=== PATIENT | female | born 1940 | race Caucasian/White ===

== ENCOUNTER 2020-07-05 11:24 | Outpatient (CLI) | payer MEDICARE, SELFPAY ==
--- NOTE | ~2020-07-05 | XR_ITS ---
XR foot RT min 3V DATE: 07/05/2020 11:42 INDICATION: Bilateral foot pain TECHNIQUE: 3 views COMPARISON: None FINDINGS: There is very prominent hallux valgus and bunion deformity. No fracture or dislocation, periosteal reaction or bone destruction is detected. IMPRESSION: Prominent hallux valgus and bunion deformity Reviewed, dictated and finalized at location A.
--- NOTE | ~2020-07-05 | XR_ITS ---
XR foot LT min 3V DATE: 07/05/2020 11:42 INDICATION: Left foot pain TECHNIQUE: 3 views COMPARISON: None FINDINGS: Prominent hallux valgus and bunion deformity. 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 Plantar calcaneal enthesopathy. 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
== END 2020-07-05 11:25 | disposition home or self-care (01) ==
LOC: CHSIMG 11:26
PROVIDERS: PCP Family Medicine; Visit Provider Podiatrist
DX: M79.672 Pain in left foot (principal); M79.671 Pain in right foot; M19.071 Primary osteoarthritis, right ankle and foot; M19.072 Primary osteoarthritis, left ankle and foot
CPT/HCPCS: 73630

== ENCOUNTER 2022-02-08 07:47 | Outpatient (RCR) | payer MEDICARE, SELFPAY ==
--- NOTE | 2022-02-08 08:14 | PTOPEVAL1 ---
Assessment and note entered by JT File, PT Evaluation Information Assessment Status Evaluation Diagnosis imbalance Onset 02/05/22 Subjective Information patient reports she is coming to therapy for evaluation of which walker would be most safe for her to use. she reports she does not want to seek any continued services for her balance at this time. patient reports she is seeking consultation with a ENT/specialist for an inner ear disorder, and may be getting surgery soon. she reports she has not had any falls. Reported Pain Level Pain Score 0: Self Report Additional Pain Score Comments worse on the R most of the time. Assessment PT Clinical Summary mrs. shearer presents to skilled PT for evaluation of most appropriate walker for ambulation and safety. as of this date, she presents with a moderate fall risk per the tinetti balance assessment, and a current innner ear disorder affecting her balanace. due to patients reports of poor endurance with standing and ambulation, especially in the mornings, and due to her balance deficits, it is advised that patient acquire a rollator walker for safety with standing and ambulation. Plan of Care Interventions Patient/Caregiver Educati PT Services Indicated Yes Treatment Frequency and DC patient after evaluation. patient does not want Duration to continue skilled PT at this time. These treatments will address the objective and functional deficits as defined above. The patient will be advanced safely and appropriately in order for the patient to progress towards his/her prior level of function. Additional exercises will be introduced and as well as a comprehensive home exercise program upon discharge, if needed, ?to ensure carryover of functional gains achieved in the clinic. This treatment plan has been reviewed and agreement upon by the patient.
== END 2022-02-08 09:45 | disposition home or self-care (01) ==
LOC: CHSPT 07:47
PROVIDERS: PCP Family Medicine; Visit Provider Family Medicine
DX: R26.89 Other abnormalities of gait and mobility (principal)
CPT/HCPCS: 97161

== ENCOUNTER 2023-04-25 07:10 | Outpatient (NON) | payer MEDICARE, SELFPAY ==
[2023-04-25 08:10] LABS: Basophils Absolute Auto 0.06 K/mm3 (0.00-0.10); Eosinophils Absolute Auto 0.25 K/mm3 (0.02-0.50); Eosinophils Percent Auto 4.2 % (1.0-6.0); Hematocrit 40.5 % (35.0-42.0); Hemoglobin 12.7 g/dL (11.7-13.8); Immature Granulocyte Absolute 0.01 K/mm3 (0.00-0.00); Immature Granulocyte Percent A 0.2 % (0.0-0.0); Lymphocytes Absolute Auto 1.85 K/mm3 (1.10-4.50); Mean Corpuscular HGB Conc 31.4 g/dL (32.0-36.0); Mean Corpuscular Volume 92.5 fL (78.0-102.0); Mean Platelet Volume 9.2 fl (9.2-11.8); Monocytes Absolute Auto 0.63 K/mm3 (0.10-0.90); Monocytes Percent Auto 10.6 % (2.0-11.0); Neutrophils Absolute Auto 3.2 K/mm3 (1.7-7.2); Platelet Count Result 278 K/mm3 (150-420); Red Blood Count 4.38 M/mm3 (4.20-5.40); Red Cell Distribution Width 13.2 % (11.6-14.4)
[2023-04-25 08:31] LABS: Alanine Aminotransferase 23 U/L (14-59); Albumin Level 3.9 g/dL (3.4-5.0); Alkaline Phosphatase 103 U/L (46-116); Anion Gap 10 mmol/L (8-16); Aspartate Amino Transferase 14 U/L (15-37); Bilirubin,Total 0.5 mg/dL (0.00-1.00); Blood Urea Nitrogen 12 mg/dL (7-18); Calcium 9.5 mg/dL (8.5-10.1); Carbon Dioxide 30 mmol/L (21-32); Chloride 97 mmol/L (98-108); Estimated Glomerular Filt Rate > 60; Glucose 90 mg/dL (70-99); Osmolality Calculated 283 mOsm/kg (285-295); Potassium 4.5 mmol/L (3.5-5.1); Sodium 137 mmol/L (136-145); Total Protein 6.9 g/dL (6.4-8.2)
[2023-04-25 08:41] LABS: Hemoglobin A1C 5.3 % (<5.7)
== END 2023-04-25 07:11 | disposition home or self-care (01) ==
LOC: CHSLAB 07:11
PROVIDERS: Visit Provider Family Medicine
DX: I67.9 Cerebrovascular disease, unspecified (principal); I65.23 Occlusion and stenosis of bilateral carotid arteries; M81.0 Age-related osteoporosis without current pathological fracture; I10 Essential (primary) hypertension; R79.9 Abnormal finding of blood chemistry, unspecified
CPT/HCPCS: 36415; 80053; 83036; 85025

== ENCOUNTER 2023-05-16 07:00 | Outpatient (NON) | payer MEDICARE, SELFPAY ==
[2023-05-19 02:32] LABS: Vitamin D 25 Hydroxy 63 ng/mL (30-100)
== END 2023-05-16 07:01 | disposition home or self-care (01) ==
LOC: CHSLAB 07:02
PROVIDERS: Visit Provider Family Medicine
DX: E55.9 Vitamin D deficiency, unspecified (principal); M81.0 Age-related osteoporosis without current pathological fracture
CPT/HCPCS: 36415; 82306

== ENCOUNTER 2023-05-28 07:47 | Outpatient (NON) | payer MEDICARE, SELFPAY ==
[2023-05-28 08:41] LABS: Sodium 138 mmol/L (136-145)
== END 2023-05-28 07:48 | disposition home or self-care (01) ==
LOC: CHSLAB 07:49
PROVIDERS: Visit Provider Family Medicine
DX: I10 Essential (primary) hypertension (principal); R41.0 Disorientation, unspecified; R42 Dizziness and giddiness
CPT/HCPCS: 36415; 84295

== ENCOUNTER 2023-10-29 15:10 | Outpatient (NON) | payer MEDICARE, SELFPAY | END 2023-10-29 15:11 | disposition home or self-care (01) | LOC: CHSLAB 15:12 | PROVIDERS: Visit Provider Family Medicine | DX: R35.0 Frequency of micturition (principal) | CPT/HCPCS: 87086 ==

== ENCOUNTER 2023-10-31 11:42 | Outpatient (NON) | payer MEDICARE, SELFPAY ==
[2023-10-31 12:32] LABS: Appearance Urine Clear (Clear); Color Urine Yellow (Yellow); Glucose Urine UA Negative (Negative); Ketones Urine Negative (Negative); Protein Urine Negative (Negative); Specific Grav Ur 1.005 (1.010-1.020)
[2023-10-31 12:33] LABS: Add Urine Microscopic? YES; Bacteria Urine Rare /hpf; Bilirubin Urine Negative (Negative); Blood Urine Negative (Negative); Leukocyte Esterase Ur 2+ LEU/UL (Negative); Nitrate Urine Negative (Negative); RBC Urine None seen /hpf (0-2); Squamous Epithelial Cell Urine Rare /hpf (Few); Urobilinogen Urine Normal mg/dL (0.2-1.0)
== END 2023-10-31 11:43 | disposition home or self-care (01) ==
LOC: CHSLAB 11:46
PROVIDERS: Visit Provider Family Medicine
DX: R35.0 Frequency of micturition (principal); R82.90 Unspecified abnormal findings in urine
CPT/HCPCS: 81001; 87077; 87086; 87088; 87186

== ENCOUNTER 2023-12-10 08:47 | Outpatient (NON) | payer MEDICARE, SELFPAY ==
[2023-12-10 09:02] LABS: Add Urine Microscopic? YES; Appearance Urine Cloudy (Clear); Bilirubin Urine Negative (Negative); Blood Urine 3+ (Negative); Color Urine Yellow (Yellow); Glucose Urine UA Negative (Negative); Ketones Urine Negative (Negative); Leukocyte Esterase Ur 3+ (Negative); Nitrate Urine Negative (Negative); Protein Urine Trace (Negative)
[2023-12-10 09:07] LABS: Bacteria Urine 3+ /hpf; RBC Urine 21-50 /hpf (0-2); Squamous Epithelial Cell Urine Rare /hpf (Few); WBC Urine 51-75 /hpf (0-3)
== END 2023-12-10 08:48 | disposition home or self-care (01) ==
LOC: CHSLAB 08:48
PROVIDERS: Visit Provider Family Medicine
DX: R30.0 Dysuria (principal); R39.15 Urgency of urination
CPT/HCPCS: 81001; 87077; 87086; 87088; 87186

== ENCOUNTER 2023-12-25 14:56 | Outpatient (CLI) | payer MEDICARE, SELFPAY ==
--- NOTE | ~2023-12-25 | XR_ITS ---
XR abdomen/kub 1V Ordering provider: Nirmal Ann, History: . ABDOMEN PAIN . Comparison: None. FINDINGS: BOWEL: Fecal material in the colon. Nonobstructive bowel gas pattern. ORGANOMEGALY: None. SIGNIFICANT PATHOLOGIC CALCIFICATIONS: None. OTHER: No free air is seen under the diaphragm. Degenerative changes of the spine. IMPRESSION: NO ACUTE ABDOMINAL FINDINGS. Constipation. Reviewed, dictated and finalized at location A.
== END 2023-12-25 14:57 | disposition home or self-care (01) ==
PROVIDERS: PCP Family Medicine; Visit Provider Family Medicine
DX: R10.9 Unspecified abdominal pain (principal); K59.00 Constipation, unspecified
CPT/HCPCS: 74018

== ENCOUNTER 2024-02-12 15:50 | Outpatient (CLI) | payer MEDICARE, SELFPAY ==
--- NOTE | ~2024-02-12 | XR_ITS ---
EXAMINATION: XR abdomen obstructive series DATE: 02/12/2024 16:10 INDICATION: Abdominal pain. TECHNIQUE: Upright and supine views of the abdomen on 3 radiographs were obtained. COMPARISON: Abdomen radiographs 12/25/2023 FINDINGS: There are no dilated loops of bowel. There is a moderate volume of stool in the colon. No f ree intraperitoneal gas. Calcifications in the pelvis are likely phleboliths. IMPRESSION: 1. Nonobstructive bowel gas pattern. Reviewed, dictated and finalized at location A. GER STAR
== END 2024-02-12 15:51 | disposition home or self-care (01) ==
PROVIDERS: PCP Family Medicine; Visit Provider Family Medicine
DX: R10.9 Unspecified abdominal pain (principal)
CPT/HCPCS: 74019

== ENCOUNTER 2024-02-14 10:29 | Outpatient (NON) | payer MEDICARE, SELFPAY ==
[2024-02-14 10:51] LABS: Add Urine Microscopic? NO; Appearance Urine Clear (Clear); Bilirubin Urine Negative (Negative); Blood Urine Negative (Negative); Color Urine Light Yellow (Yellow); Glucose Urine UA Negative (Negative); Ketones Urine Negative (Negative); Leukocyte Esterase Ur Negative LEU/UL (Negative); Nitrate Urine Negative (Negative); Protein Urine Negative (Negative); Specific Grav Ur 1.015 (1.010-1.020)
== END 2024-02-14 10:30 | disposition home or self-care (01) ==
LOC: CHSLAB 10:39
PROVIDERS: Visit Provider Family Medicine
DX: R35.0 Frequency of micturition (principal)
CPT/HCPCS: 81003; 87086

== ENCOUNTER 2024-04-16 11:37 | Outpatient (NON) | payer MEDICARE, SELFPAY ==
--- OUTSIDE RECORDS SUMMARY | 2024-04-16 11:54 | XMS_ITS | Clinical Summary ---
Author Organization [facility] Address [address] [place] [address] Care Team Providers Care Dolly Driver Name Role Phone Gladys Stoner MD Unavailable [phone] Chun Orantes MD Unavailable [facility] Nirmal Amaro MD Primary Care Provider Allergies Active Allergy Reactions Criticality Noted Date Comments Corey Inhibitors Cough 01/30/2016 Atorvastatin Myalgias 01/30/2016 Brinzolamide Other (see comment) Low 07/20/2011 redness Cerivastatin Unknown 01/30/2016 Codeine Itching 12/31/2022 Cyclosporine Other (see comment) Low 02/04/2015 The patient experienced headache that resolved after discontinuing Restasis. Therefore we will stop this medication but could resume dry eye symptoms recur as it is unlikely that Restasis was causing headache, Sandeep Reyes MD, 02/04/2015, 1:14 PM, , The patient experienced headache that resolved after discontinuing Restasis. Therefore we will stop this medication but could resume dry eye symptoms recur as it is unlikely that Restasis was causing headache, Sandeep Reyes MD, 02/04/2015, 1:14 PM, Erythromycin Unknown 01/30/2016 Erythromycin Base Itching 12/31/2022 Ezetimibe Myalgias 01/30/2016 Fenofibrate Other (see comment) 12/31/2022 Fluvastatin Myalgias 01/30/2016 Iodine Shortness of Breath High 01/30/2016 Iodine Shortness of Breath High 12/31/2022 Nortriptyline Itching 08/07/2022 Penicillins Myalgias 01/30/2016 Pravastatin Other (see comment) 12/31/2022 Shellfish Allergy Anaphylaxis High 12/31/2022 Shellfish-Derived Products Unknown 02/01/2016 Simvastatin Other (see comment) 12/31/2022 Statins Myalgias 01/30/2016 Sulfa Antibiotics Unknown 07/20/2011 Tetracycline Itching 12/31/2022 Tetracyclines & Related Itching 01/30/2016 Timolol Other (see comment) Low 09/23/2013 Pt called and reported dizzyness; resoled after stopping timolol, Sandeep Reyes MD, 09/23/2013, 2:08 PM, , Pt called and reported dizzyness; resoled after stopping timolol, Sandeep Reyes MD, 09/23/2013, 2:08 PM, , Pt called and reported dizzyness; resoled after stopping timolol, Sandeep Reyes MD, 09/23/2013, 2:08 PM, Yellow Dye Unknown 07/20/2011 Medications aspirin 325 MG tablet Take 1 tablet (325 mg total) by mouth daily. 09/14/2014 Active rosuvastatin (CRESTOR) 5 MG tablet Take 0.5 tablets (2.5 mg total) by mouth daily. 09/14/2014 Active albuterol sulfate HFA (PROAIR HFA) 108 (90 Base) MCG/ACT inhaler ProAir HFA (albuterol sulfate) HFA aerosol inhaler 90 mcg/actuatio n; take 2 puff by mouth as directed; 0; 14-Sep-2014; Active 09/14/2014 Active Cholecalciferol (VITAMIN D) 50 MCG (2000 UT) Cap Take 1 tablet by mouth daily. 09/14/2014 Active vitamin B-12 (CYANOCOBALAMIN ) 1000 mcg tablet Take 1 tablet (1,000 mcg total) by mouth daily. Active carboxymethylce llulose PF (REFRESH PLUS) 0.5 % ophthalmic solution Place 1 drop into both eyes as needed. Active Olopatadine HCl (PATADAY OP) Apply 1 drop to eye daily as needed. Active losartan (COZAAR) 100 MG tablet Take 1 tablet (100 mg total) by mouth daily. 09/25/2021 Active tobramycin-dexa methasone (TOBRADEX) ophthalmic solution 11/29/2021 Active ALPRAZolam (XANAX) 0.5 MG tabletIndicatio ns:Dizziness Take 1 tablet (0.5 mg total) by mouth 4 (four) times daily. 120 tablet 01/29/2023 Active propranolol (INDERAL) 10 MG tablet Take 1 tablet (10 mg total) by mouth 2 (two) times daily as needed (anxiety). 90 tablet 01/29/2023 Active Active Problems Problem Noted Date Diagnosed Date Other spondylosis with radiculopathy, thoracic r egion 07/21/2021 Palpitations 07/14/2019 Osteoporosis 10/16/2018 Syringomyelia ([facility]) 06/12/2018 Carotid stenosis, asymptomatic, bilateral 2017 Essential (primary) hypertension 04/17/2017 Hyperlipidemia, mixed 04/17/2017 Dizziness Resolved Problems Problem Noted Date Diagnosed Date Resolved Date Confusion 01/27/2023 01/29/2023 Family History Medical History Relation Comments Stent Cardiac Brother Heart Attack Father Prostate Cancer Father HX PPM Sister Relation Status Comments Brother Alive Father (Age 70) Maternal Grandfather (Age 82) Maternal Grandmother (Age 86) Mother (Age 81) Paternal Grandfather (Age 75) Paternal Grandmother (Age 75) Sister Alive Social History Tobacco Use Types Packs/Day Years Used Date Smoking Tobacco: Every Day Smokeless Tobacco: Never Tobacco Cessation:Ready to Q uit: No; Counseling Given: Yes Alcohol Use Standard Drinks/Week Comments Never 0 (1 standard drink = 0.6 oz pur e alcohol) [facility] Utilities Answer Date Recorded In the past 12 months has [facility] [employer], oil, or water [employer] threatened to shut off services in your home? No 01/27/2023 Humiliation, Afraid, Rape, and Kick questionnair e Answer Date Recorded Within the last year, have y ou been afraid of your partner or ex-partner? No 01/27/2023 Within the last year, have y ou been humiliated or emotionally abused in other ways by your partner or ex-partner? No Within the last year, have y ou been kicked, hit, slapped, or otherwise physically hurt by your partner or ex-partner? No 01/27/2023 Within the last year, have y ou been raped or forced to have any kind of sexual activity by your partner or ex-partner? No 01/27/2023 Overall Financial Resource Strain (CARDIA) Answe r Date Recorded How hard is it for you to pa y for the very basics like food, housing, medical care, and heating? Not hard at all 01/27/2023 Hunger Vital Sign Answer Date Recorded Within the past 12 months, y ou worried that your food would run out before you got the money to buy more. Never true 01/28/20 23 Within the past 12 months, t he food you bought just didn't last and you didn't have money to get more. Never true 01/27/2023 PRAPARE - Transportation Answer Date Re corded In the past 12 months, has l ack of transportation kept you from medical appointments or from getting medications? No 04/2022 In the past 12 months, has l ack of transportation kept you from meetings, work, or from getting things needed for daily living? No 01/27/2023 Housing Stability Vital Sign Answer Kenny e Recorded In the last 12 months, was t here a time when you were not able to pay the mortgage or rent on time? No 01/27/2023 In the last 12 months, how many places have you lived? 1 01/27/2023 In the last 12 months, was t here a time when you did not have a steady place to sleep or slept in a [facility] (including now)? 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 Not on file Not on file Not on fi le Last Filed Vital Signs Vital Sign Reading Time Taken Comments Blood Pressure 139/45 01/29/2023 1:48 PM SHIPPING P[employer]ER Pulse 73 01/29/2023 1:48 PM SHIPPING P[employer]ER Temperature 36.1 C (97 F) 01/29/2023 1:48 PM SHIPPING PACKER Respiratory Rate 18 01/29/2023 1:48 PM SHIPPING PACKER Oxygen Saturation 97% 01/29/2023 1:48 PM SHIPPING PACKER Inhaled Oxygen Concentration - - Weight 52.2 kg (115 lb) 01/27/2023 2:35 PM SHIPPING PACKER Height 157.5 cm (5' 2 ) 01/27/2023 2:35 PM SHIPPING PACKER Body Mass Index 21.03 01/27/2023 2:35 PM SHIPPING PACKER Plan of Treatment Health Maintenance Due Date Last Done Comments DTaP, Tdap and Td Vaccines ( 1 - Tdap) 1959 Annual Medicare Wellness Visit 08/19/2007 Pneumococcal Vaccine: 65+ Years (2 of 2 - PPSV23 or PCV20) 05/21/2012 03/26/2012 RSV Immunization or 60+ Years (1 - 1-dose 75+ series) 2017 COVID-19 Vaccine ( - 2023-2 5 season) 2023 Influenza Adult (#1) 2023 Zoster Vaccines Completed 11/02/2018, 08/17/2018 Dexa Scan (General) Completed 06/25/2022 Meningococcal B Vaccine Aged Out No l onger eligible based on patient's age to complete this topic Meningococcal Vaccine Aged Out No lucy jose eligible based on patient's age to complete this topic RSV Immunizations Under 20 Months Aged Out No longer eligible b ased on patient's age to complete this topic Procedures Procedure Name Priority Date/Time Associated Diagnosis Comments BONE DENSITY/DEXA Routine 06/25/2022 2:4 6 PM CDT Postmenopausal from Last 3 Months or Most Recently Relevant to Health Maintenance Results * BONE DENSITY/DEXA (06/25/2022 2:46 PM CDT) Anatomical Region Laterality Modality Bone Bone Density 06/26/2022 12:1 3 PM CDT Impressions 06/26/2022 12:16 PM CDT Impression: Normal bone mineral density in the lumbar spine. Osteopenia of the hips. Increased fracture risk. Follow-up DEXA examination is recommended at one year. Treatment is advised. Ordered By: NIRMAL HDZ Interpreted By: Carlos Josue Jr, MD, 06/26/2022 12:13 PM Narrative 06/26/2022 12:16 PM CDT Date: 06/25/2022. Examination: DEXA Bone densitometry. Comparison: No comparisons.. Clinical history: Osteoporosis screening. Technique: DEXA bone minimal density evaluation was performed in the AP projection over the lumbar spine and over both hips in the AP projection utilizing standard imaging techniques. Assessment: The BMD measured at the AP spine L1-L4 is 0.999 g/cm2 with a T-score of -0.4 and a Z-Score of 2.2. Normal bone mineral density. The BMD measured at the femur total left is 0.815 g/cm2 with a T-score of -1.0 and a Z-Score of 1.0. Osteopenia. The 10 year fracture risk for major osteoporotic fracture is 11%. The 10 year fracture risk for left hip fracture is 3.6%. The BMD measured at the femur total right is 0.702 g/cm2 with a T-score of -2.0 and aZ-Score of 0.1. Osteopenia. The 10 year fracture risk for major osteoporotic fracture is 13%. The 10 year fracture risk for right hip fracture is 4.5%. Recommendations: All patients should ensure an adequate intake of dietary calcium and vitamin D. The NOF recommend adults under the age of 50 need 1000 mg of calcium and 400-800 IU of vitamin D daily. Effective therapy for the prevention and treatment of osteoporosis include biphosphonates. Follow-up: People with diagnosed cases of osteoporosis or at high risk for fracture should have regular bone mineral density test. For patients eligible for Medicare, routine testing is allowed once every 2 years. Testing frequency can be increased to one year for patients who have rapidly progressing disease, those who are receiving or discontinuing medical therapy to restore bone mass, or have additional risk factors. Based on these results, a followup exam is recommended in June 2023. Procedure Note Carlos Josue MD - 06/26/2022 Date: 06/25/2022. Examination: DEXA Bone densitometry. Comparison: No comparisons.. Clinical history: Osteoporosis screening. Technique: DEXA bone minimal density evaluation was performed in the APprojection over the lumbar spine and over both hips in the AP projectionutilizing standard imaging techniques. Assessment: The BMD measured at the AP spine L1-L4 is 0.999 g/cm2 with a T-score of-0.4 and a Z-Score of 2.2. Normal bone mineral density. The BMD measured at the femur total left is 0.815 g/cm2 with a T-score of-1.0 and a Z-Score of 1.0. Osteopenia. The 10 year fracture risk formajor osteoporotic fracture is 11%. The 10 year fracture risk for left hipfracture is 3.6%. The BMD measured at the femur total right is 0.702 g/cm2 with a T-score of-2.0 and aZ-Score of 0.1. Osteopenia. The 10 year fracture risk formajor osteoporotic fracture is 13%. The 10 year fracture risk for righthip fracture is 4.5%. Recommendations: All patients should ensure an adequate intake of dietary calcium andvitamin D. The NOF recommend adults under the age of 50 need 1000 mg ofcalcium and 400-800 IU of vitamin D daily. Effective therapy for theprevention and treatment of osteoporosis include biphosphonates. Follow-up: People with diagnosed cases of osteoporosis or at high risk for fractureshould have regular bone mineral density test. For patients eligible forMedicare, routine testing is allowed once every 2 years. Testing frequencycan be increased to one year for patients who have rapidly progressingdisease, those who are receiving or discontinuing medical therapy torestore bone mass, or have additional risk factors. Based on these results, a followup exam is recommended in June 2023. Impression: Normal bone mineral density in the lumbar spine. Osteopenia of the hips.Increased fracture risk. Follow-up DEXA examination is recommended at oneyear. Treatment is advised. 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
--- OUTSIDE RECORDS SUMMARY | 2024-04-16 11:54 | XMS_ITS | Referral Summary ---
Author Organization [facility] Address [address] [place] [address] Care Team Providers Care Protection Mgr Name Role Phone Inder Redman MD Primary Care Provider [phone] Source Comments [facility],non-owned Affiliates and Associated Physician Practices is amultiple site organization consisting of ambulatory clinics and hospital sitesin [place], [place], [place] and [place]. This disclosure is being madepursuant to the Care Everywhere program and may not contain all information available regarding this patient. Last updated 17.[facility] Allergies Active Allergy Reactions Criticality Noted Date Comments Brinzolamide Other Low 07/20/2011 redness Cyclosporine Other Low 02/04/2015 The patient experienced headache that [...] headache, Sandeep Reyes MD, 02/04/2015, 1:14 PM, Hmg-Coa-R Inhibitors Other Low 06/02/2013 Muscle aches. Pt does okay on Crestor., Muscle aches. Pt does okay on Crestor., Muscle aches. Pt does okay on Crestor. 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 015 Age-related cataract 12/09/2014 Social History Tobacco Use Types Packs/Day Years Used Date Smoking Tobacco: Former Cigarettes Alcohol Use Standard Drinks/Week Comments No 0 (1 standard drink = 0.6 oz pur e alcohol) Sex and Gender Information Value Date Recorded Sex Assigned at Not on file Gender Identity Not on file Sexual Orientation Not on file Last Filed Vital Signs Vital Sign Reading Time Taken Comments Blood Pressure 133/82 06/20/2015 2:55 PM CDT Pulse 67 06/20/2015 2:55 PM CDT Temperature 36.6 C (97.8 F) 06/20/2015 3:00 PM CDT Respiratory Rate 16 06/20/2015 2:55 PM CDT Oxygen Saturation 97% 06/20/2015 2:55 PM CDT Inhaled Oxygen Concentration - - Weight 76.7 kg (169 lb) 06/20/2015 11:58 AM CDT Height 157.5 cm (5' 2 ) 06/20/2015 11:58 AM CDT Body Mass Index 30.91 06/20/2015 11:58 AM CDT Plan of Treatment Not on file Care Teams Protection Mgr Relationship Specialty Start Date End Date Inder Redman MD [address] [place] [phone] PCP - General 12/05/07
--- OUTSIDE RECORDS SUMMARY | 2024-04-16 11:54 | XMS_ITS | Encounter Summary ---
Author Organization [facility] Address [address] [place] [address] Care Team Providers Care Filler Leaf Cutter Long Name Role Phone Gladys Stoner MD Unavailable [phone] Chun Orantes MD Un[facility] Nirmal Amaro MD Primary Care Provider [phone] Encounter Details Date Type Department Care Team (Late st Contact Info) Description 07/21/2021 [employer] Message Enc [facility] [address], [facility] [address] [place] [address] Se Vargas III, MD [address] [place] [address] Visit Follow Up Social History Tobacco Use Types Packs/Day Years Used Date Smoking Tobacco: Every Day Smokeless Tobacco: Never Alcohol Use Standard Drinks/Week Comments No 0 (1 standard drink = 0.6 oz pur e alcohol) Comments Unknown Sex and Gender Information Value Date Recorded Sex Assigned at Not on file Legal Sex Female 9:27 PM CDT Gender Identity Not on file Sexual Orientation Not on file 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 No / Unsure 07/20/2021 12:35 PM CDT documented as of this encounter Plan of Treatment Not on file documented as of this encounter Visit Diagnoses Not on filedocumented in this encounter Care Teams Filler Leaf Cutter Long Relationship Specialty Start Date End Date Nirmal Ann MD [address] [place] [phone] PCP - General FAMILY PRACTICE 07/19/20 Gladys Stoner MD [address] [place] [phone] [place] Business Database Analyst CARDIOVASCULAR DISEASE 06/24/18 Chun Orantes MD [address] [place] [address] Business Database Analyst CARDIOVASCULAR DISEASE 12/03/18 documented as of this encounter
--- OUTSIDE RECORDS SUMMARY | 2024-04-16 11:55 | XMS_ITS | Encounter Summary ---
Author Organization [facility] Address [facility] [place] [address] Care Team Providers Care Animal Impersonator Name Role Phone Inder Redman MD Primary Care Provider [phone] Angelo Willson MD Unavailable Unavailab Gladys Harding MD Unavailable [phone] Chun Orantes MD Unavailable Un[facility] Nirmal Amaro MD Primary Care Provider [phone] Encounter Details Date Type Department Care Team (Late st Contact Info) Description 10/27/2014 Abstract [facility] AT [address] [phone] Gordon Barbour MD Social History Tobacco Use Types Packs/Day Years Used Date Smoking Tobacco: Former Cigarettes Q uit: 08/11/2014 Alcohol Use Standard Drinks/Week Comments No 0 (1 standard drink = 0.6 oz pur e alcohol) Comments Unknown Sex and Gender Information Value Date Recorded Sex Assigned at Not on file Legal Sex Female 9:27 PM CDT Gender Identity Not on file Sexual Orientation Not on file 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 Not on file Not on fi le documented as of this encounter Plan of Treatment Not on file documented as of this encounter Visit Diagnoses Not on filedocumented in this encounter Care Teams Animal Impersonator Relationship Specialty Start Date End Date Inder Redman MD [address] [place] [phone] PCP - General FAMILY PRACTICE 01/30/16 07/18/20 Nirmal Ann MD [address] [place] [phone] PCP - General FAMILY PRACTICE 07/19/20 Angelo Willson MD [address] [place] [phone] CARDIOVASCULAR DISEASE 01/30/16 06/23/18 Gladys Stoner MD [address] [place] [phone] [place] Special Services Agent CARDIOVASCULAR DISEASE 06/24/18 Chun Orantes MD [address] [place] [address] Special Services Agent CARDIOVASCULAR DISEASE 12/03/18 documented as of this encounter
--- OUTSIDE RECORDS SUMMARY | 2024-04-16 11:55 | XMS_ITS | Encounter Summary ---
Author Organization [facility] Address [address] [place] [address] Care Team Providers Care Gill Box Tender Name Role Phone Inder Redman MD Primary Care Provider [phone] Angelo Willson MD Unavailable Unavailab Gladys Harding MD Unavailable [phone] Chun Orantes MD Unavailable Unavailabl Nirmal Amaro MD Primary Care Provider [phone] Encounter Details Date Type Department Care Team (Late st Contact Info) Description 01/30/2016 Abstract [facility] [address] [place] [phone] Angelo Willson MD Social History Tobacco Use Types Packs/Day [...] 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 Not on file Not on fi le documented as of this encounter Plan of Treatment Not on file documented as of this encounter Visit Diagnoses Not on filedocumented in this encounter Care Teams Gill Box Tender Relationship Specialty Start Date End Date Inder Redman MD [address] [place] [phone] PCP - General FAMILY PRACTICE 01/30/16 07/18/20 Nirmal Ann MD [address] [place] [phone] PCP - General FAMILY PRACTICE 07/19/20 Angelo Willson MD [address] [place] [phone] CARDIOVASCULAR DISEASE 01/30/16 06/23/18 Gladys Stoner MD [address] [place] [phone] [place] Clinical Operations Leader CARDIOVASCULAR DISEASE 06/24/18 Chun Orantes MD [address] [place] [address] Clinical Operations Leader CARDIOVASCULAR DISEASE 12/03/18 documented as of this encounter
--- OUTSIDE RECORDS SUMMARY | 2024-04-16 11:55 | XMS_ITS | Patient Health Summary ---
Author Organization [facility] Address [address] [facility] [place] [address] Care Team Providers Care Steel Worker Name Role Phone Inder Redman MD Primary Care Provider [phone] Note from [facility],non-owned Affiliates and Associated Physician Practices is amultiple site organization consisting of ambulatory clinics and hospital sitesin [place], [place], [place] and [place]. This disclosure is being madepursuant to the Care Everywhere program and may not contain all information available regarding this patient. Last updated 17.[facility] Allergies * Brinzolamide(Other) -Low Criticality * Cyclosporine(Other) -Low Criticality * Hmg-Coa-R Inhibitors(Other) -Low Criticality * Iodine * Kdc:Yellow Dye+Erythromycin * Penicillins Cross Reactors * Sulfa Drugs * Timolol(Other) -Low Criticality Active Problems Problem Noted Date Diagnosed Date [...] Mass Index 30.91 06/20/2015 11:58 AM CDT Care Teams Steel Worker Relationship Specialty Start Date End Date Inder Redman MD [address] [place] [phone] PCP - General 12/05/07
--- OUTSIDE RECORDS SUMMARY | 2024-04-16 11:55 | XMS_ITS | Referral Summary ---
Author Organization [facility] Address [address] [place] [phone] Care Team Providers Care Terrazzo Polisher Name Role Phone Nirmal Ann MD Primary Care Provider Allergies Active Allergy Reactions Criticality Noted Date Comments Erythromycin Iodine Penicillins Shellfish Containing Products Zcdwdbt-Vge-Uwg Reductase Inhibitors Sulfa (Sulfonamide Antibiotics) Medications albuterol HFA (PROVENTIL HFA,VENTOLIN HFA,PROAIR HFA) 90 mcg/actuation inhaler ProAir HFA (albuterol sulfate) HFA aerosol inhaler 90 mcg/actuation; take 2 puff by mouth as directed; 0; -Aug-2014; Active 5 Active aspirin 325 mg tablet Take 1 tablet by mouth daily 5 Active C,E,zinc,copper 33-djuve0q-etj 250-5-1 mg capsule Active carboxymethylcel lulose (REFRESH PLUS) 0.5 % dropperette Administer 1 drop into affected eye(s) as needed Active cholecalciferol (VITAMIN D-3) 25 mcg (1,000 unit) tablet Take 1 tablet by mouth daily 5 Active cyanocobalamin (Vitamin B-12) 1,000 mcg tablet Take 1,000 mcg by mouth daily Active Lactobacillus rhamnosus GG (CULTURELLE) 15 billion cell capsule, sprinkle Take 1 tablet by mouth daily 5 Active losartan-hydroCH LOROthiazide (HYZAAR) 100-12.5 mg per tablet Active propranoloL (INDERAL) 10 mg tablet Take 10 mg by mouth 4 (four) times a day 5 Active rosuvastatin (CRESTOR) 5 mg tablet Take 2.5 tablets by mouth daily 5 Active Saccharomyces boulardii (FLORASTOR) 250 mg capsule Active tobramycin-dexAM ETHasone (TOBRADEX) ophthalmic solution 2 Active nortriptyline (PAMELOR) 10 mg capsuleIndicatio ns:Hypertension, unspecified type Take 1 capsule (10 mg total) by mouth nightly 90 capsule 3 2 Active Active Problems Problem Noted Date Diagnosed Date 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 I think she needs to see an sustainability coordinator for further management of this. It is probably what is making her dizzy. It may be affecting her hearing somewhat also. She would like to go ahead and pursue a referral and we will try lined that up. Until then I think she can take meclizine as needed. Xanax also can be helpful I explained. Mixed conductive and sensori neural hearing loss of both ears 01/03/2022 Assessment & Plan (01/03/2022 12:55 PM NUT FORMER): Her hearing loss is relatively mild and mostly sensorineural. She should continue with her current hearing aids. Benign paroxysmal positional vertigo 10/05/2016 Excessive cerumen in ear canal 10/05/2016 Social History Tobacco Use Types Packs/Day Years Used Date Smoking Tobacco: Every Day Cigarettes Smokeless Tobacco: Never Tobacco Cessation:Ready to Q uit: Not Asked; Counseling Given: Not Answered Personal Safety Answer Date Recorded Getting School Help Needed Not on file 05/11 Comments Unknown Sex and Gender Information Value Date Recorded Sex Assigned at Not on file Legal Sex Female 10:30 AM CDT Gender Identity Female 01/14/2022 6:11 AM NUT FORMER Sexual Orientation Straight 01/14/2022 6: 11 AM NUT FORMER Last Filed Vital Signs Vital Sign Reading Time Taken Comments Blood Pressure 149/81 10/05/2016 11:00 AM CDT Pulse 79 10/05/2016 11:00 AM CDT Temperature - - Respiratory Rate 18 01/02/2022 10:45 AM NUT FORMER Oxygen Saturation - - Inhaled Oxygen Concentration - - Weight 63.5 kg (140 lb) 01/02/2022 10:45 AM NUT FORMER Height 160 cm (5' 3 ) 01/02/2022 10:45 AM NUT FORMER Body Mass Index 24.8 01/02/2022 10:45 AM NUT FORMER Plan of Treatment Not on file Care Teams Terrazzo Polisher Relationship Specialty Start Date End Date Nirmal Ann MD PCP - General Family Medicine 12/25/21
--- OUTSIDE RECORDS SUMMARY | 2024-04-16 11:55 | XMS_ITS | Clinical Summary ---
Author Organization [facility] Address [address] [place] [phone] Care Team Providers Care Workers Compensation Specialist Name Role Phone Nirmal Ann MD Primary Care Provider Allergies Active Allergy Reactions Criticality Noted Date Comments Erythromycin Iodine Penicillins Shellfish Containing Products Vrdadyw-Njm-Nlb Reductase Inhibitors Sulfa (Sulfonamide Antibiotics) Medications albuterol HFA (PROVENTIL HFA,VENTOLIN HFA,PROAIR HFA) 90 mcg/actuation inhaler ProAir HFA (albuterol sulfate) HFA aerosol inhaler 90 mcg/actuation; take 2 puff by mouth as directed; 0; -Aug-2014; Active 5 Active aspirin 325 mg tablet Take 1 tablet by mouth daily 5 Active C,E,zinc,copper 14-lqyyl3k-pxx 250-5-1 mg capsule Active carboxymethylcel lulose (REFRESH [...] 01/03/2022 Assessment & Plan (01/03/2022 12:54 PM PUBLIC RELATIONS ASSOCIATE): I talked with her son about this. 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 I think she needs to see an armhole sewer for further management of this. It is [...] 01/03/2022 Assessment & Plan (01/03/2022 12:55 PM PUBLIC RELATIONS ASSOCIATE): Her hearing loss is relatively mild and mostly sensorineural. She should continue with her current hearing aids. Benign paroxysmal positional vertigo 10/05/2016 Excessive cerumen in ear canal 10/05/2016 Surgical History Surgery Date Site/Laterality Comments SD APPENDECTOMY Appendectomy - (Added by TW Conv) SD BIOPSY BREAST OPEN INCISIONAL Biopsy Breast Open - (Added by TW Conv) SD LIG/TRNSXJ FLP TUBE ABDL/ VAG APPR UNI/BI Tubal Ligation - (Added by TW Conv) SD COLONOSCOPY FLX DX W/TOYA J SPEC WHEN PFRMD Colonoscopy (Fiberoptic) - (Added by TW Conv) SD EXC CYST/ABERRANT BREAST TISSUE OPEN 1/> LESION Breast Surgery Lumpectomy - (Added by TW Conv) SD TRABECULOPLASTY BY LASER SURGERY Anterior Chamber Laser Trabeculoplasty - (Added by TW Conv) Medical History Medical History Date Comments Allergic rhinitis Asthma Anxiety Breast cancer (HCC) Glaucoma Hypertension Family History Medical History Relation Name Comments Glaucoma Other Family history of glaucoma - (Added by TW Conv) Hypertension Other Family history of hypertension - (Added by TW Conv) Migraines Other Family history of migraine headaches - (Added by TW Conv) Relation Name Status Comments Other Social History Tobacco Use Types Packs/Day Years [...] CDT Gender Identity Female 01/14/2022 6:11 AM PUBLIC RELATIONS ASSOCIATE Sexual Orientation Straight 01/14/2022 6: 11 AM PUBLIC RELATIONS ASSOCIATE Obstetrics History Last Filed Vital Signs Vital Sign Reading Time Taken Comments Blood Pressure 149/81 10/05/2016 11:00 AM CDT Pulse 79 10/05/2016 11:00 AM CDT Temperature - - Respiratory Rate 18 01/02/2022 10:45 AM PUBLIC RELATIONS ASSOCIATE Oxygen Saturation - - Inhaled Oxygen Concentration - - Weight 63.5 kg (140 lb) 01/02/2022 10:45 AM PUBLIC RELATIONS ASSOCIATE Height 160 cm (5' 3 ) 01/02/2022 10:45 AM PUBLIC RELATIONS ASSOCIATE Body Mass Index 24.8 01/02/2022 10:45 AM PUBLIC RELATIONS ASSOCIATE Plan of Treatment Health Maintenance Due Date Last Done Comments Depression Screening 1942 Fall Risk Assessment 1942 Osteoporosis Screening-Bone Density Scan 1942 DTaP/Tdap/Td Vaccine (1 - Tdap) 1953 Hepatitis B Screening 1960 Well Visit 65+ 08/19/2007 Influenza Vaccine (#1) 2023 , 11/17/2019, 11/27/2018, Additional history exists Pneumococcal vaccine 65+ Completed 08/19/2013, 02/27 Zoster Vaccine Completed 11/02/2018, 08/17/2018 Care Teams Workers Compensation Specialist Relationship Specialty Start Date End Date Nirmal Ann MD PCP - General Family Medicine 12/25/21
--- OUTSIDE RECORDS SUMMARY | 2024-04-16 11:55 | XMS_ITS | Clinical Summary ---
Author Organization [facility] Address [address] [facility] [place] [address] Care Team Providers Care Bottled Beverage Inspector Name Role Phone Inder Redman MD Primary Care Provider [phone] Source Comments [facility],non-owned Affiliates and Associated Physician Practices is amultiple site organization consisting of ambulatory clinics and hospital sitesin [place], [place], [place] and [place]. This disclosure is being madepursuant to the Care Everywhere program and may not contain all information available regarding this patient. Last updated 17.[facility] Allergies Active Allergy Reactions Criticality Noted Date [...] both lacrimal glands 015 Age-related cataract 12/09/2014 Family History Medical History Relation Name Comments Alzheimer's Disease Brother half brother Status: Alive Heart Disease Brother half brother Status: Alive CAD (Coronary Artery Disease) Father Status: Cancer - Prostate Father Alzheimer's Disease Mother Status: Heart Disease Sister Status: Alive Pacemaker Sister Status: Alive Relation Name Status Comments Brother half brother Father Mother Sister Social History Tobacco Use Types Packs/Day Years [...] 06/20/2015 11:58 AM CDT Plan of Treatment Health Maintenance Due Date Last Done Comments BONE DENSITY TESTING 1942 DTAP/TDAP/TD VACCINES (1 - Tdap) 1961 PNEUMOCOCCAL VACCINE 50+ (1 of 1 - PCV) 1992 ZOSTER VACCINE (1 of 2) 1992 Respiratory Syncytial Virus (RSV) Vaccine Pt: or over 60 yrs (1 - 1-dose 75+ series) 2017 COVID-19 VACCINE (2023-2 5 season) 2023 INFLUENZA VACCINE (#1) 2023 DEPRESSION SCREENING 02/26/2024 HEPATITIS B VACCINE Aged Out No longe r eligible based on patient's age to complete this topic HIB VACCINE Aged Out No longer eligi ble based on patient's age to complete this topic HPV VACCINE Aged Out No longer eligi ble based on patient's age to complete this topic MENINGOCOCCAL (Group B) VACCINE Aged Out No longer eligible based on patient's age to complete this topic MENINGOCOCCAL VACCINE Aged Out No lucy jose eligible based on patient's age to complete this topic Care Teams Bottled Beverage Inspector Relationship Specialty Start Date End Date Inder Redman MD [address] [place] [phone] PCP - General 12/05/07
--- OUTSIDE RECORDS SUMMARY | 2024-04-16 11:55 | XMS_ITS | Encounter Summary ---
Author Organization [facility] Address [address] [place] [address] Care Team Providers Care Distribution Dispatcher Name Role Phone Inder Redman MD Primary Care Provider [phone] Gladys Stoner MD Unavailable [phone] Chun Orantes MD Unavailable Unavailabl e Nirmal Ann MD Primary Care Provider [phone] Encounter Details Date Type Department Care Team (Late st Contact Info) Description 08/02/2018 Abstract [facility] [address] [place] [address] , Generic Conversion, Social History Tobacco Use Types Packs/Day Years Used Date Smoking Tobacco: Every Day Cigarettes Last attempted to quit: 08/11/2014 Smokeless Tobacco: Never Alcohol Use Standard Drinks/Week Comments No 0 (1 standard drink = 0.6 oz pur e alcohol) Comments Unknown Sex and Gender Information Value Date Recorded Sex Assigned at Not on file Legal Sex Female 9:27 PM CDT Gender Identity Not on file Sexual Orientation Not on file 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 Not on file Not on le documented as of this encounter Plan of Treatment Not on file documented as of this encounter Visit Diagnoses Not on filedocumented in this encounter Care Teams Distribution Dispatcher Relationship Specialty Start Date End Date Inder Redman MD [address] [place] [phone] PCP - General FAMILY PRACTICE 01/30/16 07/18/20 Nirmal Ann MD [address] [place] [phone] PCP - General FAMILY PRACTICE 07/19/20 Gladys Stoner MD [address] [place] [phone] [place] Senior Net Developer CARDIOVASCULAR DISEASE 06/24/18 Chun Orantes MD [address] [place] [address] Senior Net Developer CARDIOVASCULAR DISEASE 12/03/18 documented as of this encounter
[2024-04-16 12:33] LABS: SARS-CoV-2 RNA PCR Negative (Negative)
[2024-04-16 12:43] LABS: Influenza A QL RT-PCR Negative (Negative); Influenza B QL RT-PCR Negative (Negative); RSV RNA, RT-PCR Negative (Negative)
== END 2024-04-16 11:38 | disposition home or self-care (01) ==
PROVIDERS: PCP Family Medicine; Visit Provider Family Medicine
DX: R05.9 Cough, unspecified (principal)
CPT/HCPCS: 87637

== ENCOUNTER 2024-05-05 11:28 | Outpatient (NON) | payer MEDICARE, SELFPAY ==
[2024-05-05 11:46] LABS: Add Urine Microscopic? YES; Appearance Urine Clear (Clear); Bilirubin Urine Negative (Negative); Blood Urine Negative (Negative); Color Urine Yellow (Yellow); Glucose Urine UA Negative (Negative); Ketones Urine Negative (Negative); Leukocyte Esterase Ur 2+ (Negative); Nitrate Urine Negative (Negative); Protein Urine Negative (Negative)
[2024-05-05 12:07] LABS: Bacteria Urine 1+ /hpf; RBC Urine None seen /hpf (0-2); Squamous Epithelial Cell Urine Rare /hpf (Few)
--- OUTSIDE RECORDS SUMMARY | 2024-05-05 13:15 | XMS_ITS | Clinical Summary ---
Author Organization [facility] Address [address] [place] [address] Care Team Providers Care Freezing Room Worker Name Role Phone Gladys Stoner MD Unavailable [phone] Chun Orantes MD Un[facility] Nirmal Amaro MD Primary Care Provider Allergies [...] egion 07/21/2021 Palpitations 07/14/2019 Osteoporosis 10/16/2018 Syringomyelia ([facility]) 06/12/2018 Carotid stenosis, asymptomatic, bilateral 2017 Essential [...] drink = 0.6 oz pur e alcohol) [facility] Utilities Answer Date Recorded In the past 12 months has [facility] [employer], oil, or water [employer] threatened to shut off services in your [...] place to sleep or slept in a halfway (including now)? 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 Not on file Not on fi le Last Filed Vital Signs Vital Sign Reading Time Taken Comments Blood Pressure 139/45 01/29/2023 1:48 PM CAMPUS SECURITY OFFICER Pulse 73 01/29/2023 1:48 PM CAMPUS SECURITY OFFICER Temperature 36.1 C (97 F) 01/29/2023 1:48 PM CAMPUS SECURITY OFFICER Respiratory Rate 18 01/29/2023 1:48 PM CAMPUS SECURITY OFFICER Oxygen Saturation 97% 01/29/2023 1:48 PM CAMPUS SECURITY OFFICER Inhaled Oxygen Concentration - - Weight 52.2 kg (115 lb) 01/27/2023 2:35 PM CAMPUS SECURITY OFFICER Height 157.5 cm (5' 2 ) 01/27/2023 2:35 PM CAMPUS SECURITY OFFICER Body Mass Index 21.03 01/27/2023 2:35 PM CAMPUS SECURITY OFFICER Plan of Treatment Health Maintenance Due Date [...] Jr, MD, 06/26/2022 12:13 PM us Nirmal Hdz MD DEXA Final Resul t from Last 3 Months or Most Recently Relevant to Health Maintenance Insurance [employer] Advance Directives Documents on File Type Date Recorded Patient Aeronautical Research Engineer Expl anation Advance Directives and Livin g Will 01/30/2023 8:03 AM * Full Code (Latest Code Status on File) Date Activated Date Inactivated Comments 01/27/2023 2:42 PM 01/29/2023 5:38 PM Care Teams Freezing Room Worker Relationship Specialty Start Date End Date Nirmal Hdz MD [address] [place] [phone] PCP - General FAMILY PRACTICE 07/19/20 Gladys Stoner MD [place] Show Host CARDIOVASCULAR DISEASE 06/24/18 Chun Orantes MD [place] [employer] CARDIOVASCULAR DISEASE 12/03/18
--- OUTSIDE RECORDS SUMMARY | 2024-05-05 13:15 | XMS_ITS | Clinical Summary ---
Author Organization [facility] Address [address] [place] [phone] Care Team Providers Care Healthcare Customer Service Name Role Phone Nirmal Ann MD Primary Care Provider Allergies Active Allergy Reactions Criticality Noted Date Comments Erythromycin Iodine Penicillins Shellfish Containing Products Zkgutvi-Qnq-Inq Reductase Inhibitors Sulfa (Sulfonamide Antibiotics) Medications albuterol HFA (PROVENTIL HFA,VENTOLIN HFA,PROAIR HFA) 90 mcg/actuation inhaler ProAir HFA (albuterol sulfate) HFA aerosol inhaler 90 mcg/actuation; take 2 puff by mouth as directed; 0; -Aug-2014; Active 5 Active aspirin 325 mg tablet Take 1 tablet by mouth daily 5 Active C,E,zinc,copper 07-xkbgz1o-qti 250-5-1 mg capsule Active carboxymethylcel lulose (REFRESH [...] 01/03/2022 Assessment & Plan (01/03/2022 12:54 PM CHECKER AND PACKER): I talked with her son about this. 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 I think she needs to see an optimization specialist for further management of this. It is [...] 01/03/2022 Assessment & Plan (01/03/2022 12:55 PM CHECKER AND PACKER): Her hearing loss is relatively mild and mostly sensorineural. She should continue with her current hearing aids. Benign paroxysmal positional vertigo 10/05/2016 Excessive cerumen in ear canal 10/05/2016 Surgical History Surgery Date Site/Laterality Comments MT APPENDECTOMY Appendectomy - (Added by TW Conv) MT BIOPSY BREAST OPEN INCISIONAL Biopsy Breast Open - (Added by TW Conv) MT LIG/TRNSXJ FLP TUBE ABDL/ VAG APPR UNI/BI Tubal Ligation - (Added by TW Conv) MT COLONOSCOPY FLX DX W/TOYA J SPEC WHEN PFRMD Colonoscopy (Fiberoptic) - (Added by TW Conv) MT EXC CYST/ABERRANT BREAST TISSUE OPEN 1/> LESION Breast Surgery Lumpectomy - (Added by TW Conv) MT TRABECULOPLASTY BY LASER SURGERY Anterior Chamber Laser [...] CDT Gender Identity Female 01/14/2022 6:11 AM CHECKER AND PACKER Sexual Orientation Straight 01/14/2022 6: 11 AM CHECKER AND PACKER Obstetrics History Last Filed Vital Signs Vital Sign Reading Time Taken Comments Blood Pressure 149/81 10/05/2016 11:00 AM CDT Pulse 79 10/05/2016 11:00 AM CDT Temperature - - Respiratory Rate 18 01/02/2022 10:45 AM CHECKER AND PACKER Oxygen Saturation - - Inhaled Oxygen Concentration - - Weight 63.5 kg (140 lb) 01/02/2022 10:45 AM CHECKER AND PACKER Height 160 cm (5' 3 ) 01/02/2022 10:45 AM CHECKER AND PACKER Body Mass Index 24.8 01/02/2022 10:45 AM CHECKER AND PACKER Plan of Treatment Health Maintenance Due Date Last Done Comments Depression Screening 1942 Fall Risk Assessment 1942 Osteoporosis Screening-Bone Density Scan 1942 DTaP/Tdap/Td Vaccine (1 - Tdap) 1953 Hepatitis B Screening 1960 Well Visit 65+ 08/19/2007 Influenza Vaccine (#1) 2023 , 11/17/2019, 11/27/2018, Additional history exists Pneumococcal vaccine 65+ Completed 08/19/2013, 02/27 Zoster Vaccine Completed 11/02/2018, 08/17/2018 Care Teams Healthcare Customer Service Relationship Specialty Start Date End Date Nirmal Ann MD PCP - General Family Medicine 12/25/21
--- OUTSIDE RECORDS SUMMARY | 2024-05-05 13:15 | XMS_ITS | Encounter Summary ---
Author Organization [facility] Address [facility] [place] [place] [address] Care Team Providers Care Communication Skills Instructor Name Role Phone Inder Redman MD Primary Care Provider [phone] Angelo Willson MD Unavailable Unavailab Gladys Harding MD Unavailable [phone] Chun Orantes MD Unavailable Unavailabl Nirmal Amaro MD Primary Care Provider [phone] Encounter Details Date Type Department Care Team (Late st Contact Info) Description 10/27/2014 Abstract [facility] [address] [phone] Gordon Barbour MD Social History [...] 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 Not on file Not on fi le documented as of this encounter Plan of Treatment Not on file documented as of this encounter Visit Diagnoses Not on filedocumented in this encounter Care Teams Communication Skills Instructor Relationship Specialty Start Date End Date Inder Redman MD [address] [place] [phone] PCP - General FAMILY PRACTICE 01/30/16 07/18/20 Nirmal Ann MD [address] [place], [place] [phone] PCP - General FAMILY PRACTICE 07/19/20 Angelo Willson MD [address] [place] [phone] CARDIOVASCULAR DISEASE 01/30/16 06/23/18 Gladys Stoner MD [address] [place], [place] [phone] [place]aleva Hoist Operator CARDIOVASCULAR DISEASE 06/24/18 Chun Orantes MD [address] [place] [phone] [place]va Hoist Operator CARDIOVASCULAR DISEASE 12/03/18 documented as of this encounter
--- OUTSIDE RECORDS SUMMARY | 2024-05-05 13:15 | XMS_ITS | Encounter Summary ---
Author Organization [facility] Address [address] [place] [address] Care Team Providers Care Blood Splatter Analyst Name Role Phone Inder Redman MD Primary Care Provider [phone] Angelo Willson MD Unavailable Unavailab Gladys Harding MD Unavailable [phone] Chun Orantes MD Unavailable Unavailabl Nirmal Amaro MD Primary Care Provider [phone] Encounter Details Date Type Department Care Team (Late st Contact Info) Description 01/30/2016 Abstract [facility] [address] [place] [phone] Angelo Willson MD Social History Tobacco Use [...] 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 Not on file Not on fi le documented as of this encounter Plan of Treatment Not on file documented as of this encounter Visit Diagnoses Not on filedocumented in this encounter Care Teams Blood Splatter Analyst Relationship Specialty Start Date End Date Inder Redman MD [address] [place] [phone] PCP - General FAMILY PRACTICE 01/30/16 07/18/20 Nirmal Ann MD [address] [place], [place] [phone] PCP - General FAMILY PRACTICE 07/19/20 Angelo Willson MD [address] [place] [phone] CARDIOVASCULAR DISEASE 01/30/16 06/23/18 Gladys Stoner MD [address] [place], [place] [phone] [place] Data Integrity Analyst CARDIOVASCULAR DISEASE 06/24/18 Chun Orantes MD [address] [place] [phone] [place] Data Integrity Analyst CARDIOVASCULAR DISEASE 12/03/18 documented as of this encounter
--- OUTSIDE RECORDS SUMMARY | 2024-05-05 13:15 | XMS_ITS | Clinical Summary ---
Author Organization [facility] [employer] Address [address] [facility] [place] [address] Care Team Providers Care Sales And Marketing Associate Name Role Phone Inder Redman MD Primary Care Provider [phone] Source Comments [facility] [employer],non-owned Affiliates and Associated Physician Practices is amultiple site organization consisting of ambulatory clinics and hospital sitesin [place], [place] and [place]. This disclosure is being madepursuant to the Care Everywhere program and may not contain all information available regarding this patient. Last updated 17.[facility] [employer] Allergies Active Allergy Reactions Criticality Noted Date [...] age to complete this topic Care Teams Sales And Marketing Associate Relationship Specialty Start Date End Date Inder Redman MD [address] [place] [phone] PCP - General 12/05/07
--- OUTSIDE RECORDS SUMMARY | 2024-05-05 13:15 | XMS_ITS | Encounter Summary ---
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 Not on file Not on le documented as of this encounter Plan of Treatment Not on file documented as of this encounter Visit Diagnoses Not on filedocumented in this encounter Care Teams Director Of Software Development Relationship Specialty Start Date End Date Inder Redman MD [address] [place] [phone] PCP - General FAMILY PRACTICE 01/30/16 07/18/20 Nirmal Ann MD [address] [place] [phone] PCP - General FAMILY PRACTICE 07/19/20 Gladys Stoner MD [address] [place] [phone] [place] Rn Clinician CARDIOVASCULAR DISEASE 06/24/18 Chun Orantes MD [address] [place] [phone] [place] R[facility] Clinician CARDIOVASCULAR DISEASE 12/03/18 documented as of this encounter
--- OUTSIDE RECORDS SUMMARY | 2024-05-05 13:15 | XMS_ITS | Referral Summary ---
Author Organization [facility] [employer] Address [address] [facility] [place] [address] Care Team Providers Care Pulp Grinder Name Role Phone Inder Redman MD Primary Care Provider [phone] Source Comments [facility] [employer],non-owned Affiliates and Associated Physician Practices is amultiple site organization consisting of ambulatory clinics and hospital sitesin [place], [place], [place] and [place]. This disclosure is being madepursuant to the Care Everywhere program and may not contain all information available regarding this patient. Last updated 17.[facility] [employer] Allergies Active Allergy Reactions Criticality Noted Date [...] of Treatment Not on file Care Teams Pulp Grinder Relationship Specialty Start Date End Date Inder Redman MD [address] [place] [address] PCP - General 12/05/07
--- OUTSIDE RECORDS SUMMARY | 2024-05-05 13:15 | XMS_ITS | Referral Summary ---
Author Organization [facility] Address [address] [place] [phone] Care Team Providers Care Exploration Driller Name Role Phone Nirmal Ann MD Primary Care Provider Allergies Active Allergy Reactions Criticality Noted Date Comments Erythromycin Iodine Penicillins Shellfish Containing Products Bwbsqkt-Tsu-Guq Reductase Inhibitors Sulfa (Sulfonamide Antibiotics) Medications albuterol HFA (PROVENTIL HFA,VENTOLIN HFA,PROAIR HFA) 90 mcg/actuation inhaler ProAir HFA (albuterol sulfate) HFA aerosol inhaler 90 mcg/actuation; take 2 puff by mouth as directed; 0; -Aug-2014; Active 5 Active aspirin 325 mg tablet Take 1 tablet by mouth daily 5 Active C,E,zinc,copper 46-bskui4u-afo 250-5-1 mg capsule Active carboxymethylcel lulose (REFRESH [...] 01/03/2022 Assessment & Plan (01/03/2022 12:54 PM TILE ERECTOR): I talked with her son about this. 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 I think she needs to see an distilling department supervisor for further management of this. It is [...] 01/03/2022 Assessment & Plan (01/03/2022 12:55 PM TILE ERECTOR): Her hearing loss is relatively mild and [...] CDT Gender Identity Female 01/14/2022 6:11 AM TILE ERECTOR Sexual Orientation Straight 01/14/2022 6: 11 AM TILE ERECTOR Last Filed Vital Signs Vital Sign Reading Time Taken Comments Blood Pressure 149/81 10/05/2016 11:00 AM CDT Pulse 79 10/05/2016 11:00 AM CDT Temperature - - Respiratory Rate 18 01/02/2022 10:45 AM TILE ERECTOR Oxygen Saturation - - Inhaled Oxygen Concentration - - Weight 63.5 kg (140 lb) 01/02/2022 10:45 AM TILE ERECTOR Height 160 cm (5' 3 ) 01/02/2022 10:45 AM TILE ERECTOR Body Mass Index 24.8 01/02/2022 10:45 AM TILE ERECTOR Plan of Treatment Not on file Care Teams Exploration Driller Relationship Specialty Start Date End Date Nirmal Ann MD PCP - General Family Medicine 12/25/21
--- OUTSIDE RECORDS SUMMARY | 2024-05-05 13:15 | XMS_ITS | Patient Health Summary ---
Author Organization [facility] Address [address] [facility] [place] [address] Care Team Providers Care Nephrology Social Worker Name Role Phone Inder Redman MD Primary Care Provider [phone] Note from [facility],non-owned Affiliates and Associated Physician Practices is amultiple site organization consisting of ambulatory clinics and hospital sitesin [place], [place], [place] and [place]. This disclosure is being madepursuant to the Care Everywhere program and may not contain all information available regarding this patient. Last updated 17.[facility] Allergies * Brinzolamide(Other) -Low Criticality * Cyclosporine(Other) [...] 30.91 06/20/2015 11:58 AM CDT Care Teams Nephrology Social Worker Relationship Specialty Start Date End Date Inder Redman MD [address] [place] [phone] PCP - General 12/05/07
--- OUTSIDE RECORDS SUMMARY | 2024-05-05 13:15 | XMS_ITS | Encounter Summary ---
Author Organization [facility] Address [address] [place] [address] Care Team Providers Care Admitting Office Escort Name Role Phone Gladys Stonre MD Unavailable [phone] Chun Orantes MD Un[facility] Nirmal Amaro MD Primary Care Provider [phone] Encounter Details Date Type Department Care Team (Late st Contact Info) Description 07/21/2021 [employer] Message Enc [facility] [address], [facility] [address] [place], [place] [phone] Se Vargas III, MD [address] [place] [address] Visit Follow Up Social History [...] 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 No / Unsure 07/20/2021 12:35 PM CDT documented as of this encounter Plan of Treatment Not on file documented as of this encounter Visit Diagnoses Not on filedocumented in this encounter Care Teams Admitting Office Escort Relationship Specialty Start Date End Date Nirmal Ann MD [address] [place] [phone] PCP - General FAMILY PRACTICE 07/19/20 Gladys Stoner MD [facility] CARDIOVASCULAR DISEASE 06/24/18 Chun Orantes MD [facility] CARDIOVASCULAR DISEASE 12/03/18 documented as of this encounter
== END 2024-05-05 11:29 | disposition home or self-care (01) ==
LOC: CHSLAB 11:30
PROVIDERS: PCP Family Medicine; Visit Provider Family Medicine
DX: G95.0 Syringomyelia and syringobulbia (principal); N39.0 Urinary tract infection, site not specified
CPT/HCPCS: 81001; 87086; 87186

== ENCOUNTER 2024-05-19 10:42 | Outpatient (CLI) | payer MEDICARE, SELFPAY ==
[2024-05-19 10:54] LABS: Basophils Absolute Auto 0.04 K/mm3 (0.00-0.10); Basophils Percent Auto 0.7 % (0.0-1.0); Eosinophils Absolute Auto 0.17 K/mm3 (0.02-0.50); Eosinophils Percent Auto 2.8 % (1.0-6.0); Hematocrit 42.6 % (35.0-42.0); Hemoglobin 13.7 g/dL (11.7-13.8); Immature Granulocyte Absolute 0.02 K/mm3 (0.00-0.00); Immature Granulocyte Percent A 0.3 % (0.0-0.0); Lymphocytes Absolute Auto 1.78 K/mm3 (1.10-4.50); Mean Corpuscular HGB Conc 32.2 g/dL (32-36); Mean Corpuscular Hemoglobin 30.2 pg (27.0-31.0); Mean Corpuscular Volume 93.8 fL (78.0-102.0); Mean Platelet Volume 8.8 fl (9.2-11.8); Monocytes Absolute Auto 0.45 K/mm3 (0.10-0.90); Monocytes Percent Auto 7.3 % (2.0-11.0); Neutrophils Absolute Auto 3.68 K/mm3 (1.70-7.20); Neutrophils Percent Auto 59.9 % (50.0-70.0); Platelet Count Result 261 K/mm3 (150-420); Red Blood Count 4.54 M/mm3 (4.20-5.40); White Blood Count 6.1 K/mm3 (4.8-10.8)
[2024-05-19 11:17] LABS: Alanine Aminotransferase 19 U/L (14-59); Albumin Level 4.2 g/dL (3.4-5.0); Alkaline Phosphatase 108 U/L (46-116); Anion Gap 8 mmol/L (4-12); Aspartate Amino Transferase 16 U/L (15-37); Bilirubin,Total 0.6 mg/dL (0.00-1.00); Blood Urea Nitrogen 14 mg/dL (7-18); Calcium 9.9 mg/dL (8.5-10.1); Carbon Dioxide 31 mmol/L (21-32); Chloride 98 mmol/L (98-108); Estimated Glomerular Filt Rate > 60; Glucose 101 mg/dL (70-99); Osmolality Calculated 284 mOsm/kg (285-295); Potassium 4.3 mmol/L (3.5-5.1); Sodium 137 mmol/L (136-145); Total Protein 7.4 g/dL (6.4-8.2)
--- OUTSIDE RECORDS SUMMARY | 2024-05-19 12:38 | XMS_ITS | Clinical Summary ---
Author Organization [facility] Address [address] [place] [phone] Care Team Providers Care File System Installer Name Role Phone Nirmal Ann MD Primary Care Provider Allergies Active Allergy Reactions Criticality Noted Date Comments Erythromycin Iodine Penicillins Shellfish Containing Products Atzfskj-Pmi-Qrc Reductase Inhibitors Sulfa (Sulfonamide Antibiotics) Medications albuterol HFA (PROVENTIL HFA,VENTOLIN HFA,PROAIR HFA) 90 mcg/actuation inhaler ProAir HFA (albuterol sulfate) HFA aerosol inhaler 90 mcg/actuation; take 2 puff by mouth as directed; 0; -Aug-2014; Active 5 Active aspirin 325 mg tablet Take 1 tablet by mouth daily 5 Active C,E,zinc,copper 70-anpfe5d-wdb 250-5-1 mg capsule Active carboxymethylcel lulose (REFRESH [...] 01/03/2022 Assessment & Plan (01/03/2022 12:54 PM STERNMAN): I talked with her son about this. 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 I think she needs to see an presetter operator for further management of this. It is [...] 01/03/2022 Assessment & Plan (01/03/2022 12:55 PM STERNMAN): Her hearing loss is relatively mild and mostly sensorineural. She should continue with her current hearing aids. Benign paroxysmal positional vertigo 10/05/2016 Excessive cerumen in ear canal 10/05/2016 Surgical History Surgery Date Site/Laterality Comments [place] APPENDECTOMY Appendectomy - (Added by TW Conv) [place] BIOPSY BREAST OPEN INCISIONAL Biopsy Breast Open - (Added by TW Conv) [place] LIG/TRNSXJ FLP TUBE ABDL/ VAG APPR UNI/BI Tubal Ligation - (Added by TW Conv) CO COLONOSCOPY FLX DX W/TOYA J SPEC WHEN PFRMD Colonoscopy (Fiberoptic) - (Added by TW Conv) CO EXC CYST/ABERRANT BREAST TISSUE OPEN 1/> LESION Breast Surgery Lumpectomy - (Added by TW Conv) [place] TRABECULOPLASTY BY LASER SURGERY Anterior Chamber Laser [...] CDT Gender Identity Female 01/14/2022 6:11 AM STERNMAN Sexual Orientation Straight 01/14/2022 6: 11 AM STERNMAN Obstetrics History Last Filed Vital Signs Vital Sign Reading Time Taken Comments Blood Pressure 149/81 10/05/2016 11:00 AM CDT Pulse 79 10/05/2016 11:00 AM CDT Temperature - - Respiratory Rate 18 01/02/2022 10:45 AM STERNMAN Oxygen Saturation - - Inhaled Oxygen Concentration - - Weight 63.5 kg (140 lb) 01/02/2022 10:45 AM STERNMAN Height 160 cm (5' 3 ) 01/02/2022 10:45 AM STERNMAN Body Mass Index 24.8 01/02/2022 10:45 AM STERNMAN Plan of Treatment Health Maintenance Due Date Last Done Comments Depression Screening 1942 Fall Risk Assessment 1942 Osteoporosis Screening-Bone Density Scan 1942 DTaP/Tdap/Td Vaccine (1 - Tdap) 1953 Hepatitis B Screening 1960 Well Visit 65+ 08/19/2007 Influenza Vaccine (#1) 2023 , 11/17/2019, 11/27/2018, Additional history exists Pneumococcal vaccine 65+ Completed 08/19/2013, 02/27 Zoster Vaccine Completed 11/02/2018, 08/17/2018 Care Teams File System Installer Relationship Specialty Start Date End Date Nirmal Ann MD PCP - General Family Medicine 12/25/21
--- OUTSIDE RECORDS SUMMARY | 2024-05-19 12:38 | XMS_ITS | Clinical Summary ---
Author Organization [facility] [employer] Address [address] [facility] [place] [address] Care Team Providers Care Materials Handling Equipment Operator Name Role Phone Inder Redman MD Primary Care Provider [phone] Source Comments [facility] [employer],non-owned Affiliates and Associated Physician Practices is amultiple site organization consisting of ambulatory clinics and hospital sitesin [place], [place], [place] and [place]. This disclosure is being madepursuant to the Care Everywhere program and may not contain all information available regarding this patient. Last updated 17.[facility] [employer] Allergies Active Allergy Reactions Criticality Noted Date [...] to complete this topic MENINGOCOCCAL (Group B) VACC INE SHARED DECISION-MAKING Aged Out No longer eligibl e based on patient's age to complete this topic MENINGOCOCCAL GROUPS A/C/Y/W VACCINE Aged Out No longer eligible b ased on patient's age to complete this topic Care Teams Materials Handling Equipment Operator Relationship Specialty Start Date End Date Inder Redman MD [address] [place] [phone] PCP - General 12/05/07
--- OUTSIDE RECORDS SUMMARY | 2024-05-19 12:38 | XMS_ITS | Referral Summary ---
Author Organization [facility] Address [address] [place] [phone] Care Team Providers Care Candle Extrusion Machine Operator Name Role Phone Nirmal Ann MD Primary Care Provider Allergies Active Allergy Reactions Criticality Noted Date Comments Erythromycin Iodine Penicillins Shellfish Containing Products Xcddkxk-Qam-Zvw Reductase Inhibitors Sulfa (Sulfonamide Antibiotics) Medications albuterol HFA (PROVENTIL HFA,VENTOLIN HFA,PROAIR HFA) 90 mcg/actuation inhaler ProAir HFA (albuterol sulfate) HFA aerosol inhaler 90 mcg/actuation; take 2 puff by mouth as directed; 0; -Aug-2014; Active 5 Active aspirin 325 mg tablet Take 1 tablet by mouth daily 5 Active C,E,zinc,copper 15-smnpi2t-dsx 250-5-1 mg capsule Active carboxymethylcel lulose (REFRESH [...] 01/03/2022 Assessment & Plan (01/03/2022 12:54 PM PIPE ORGAN TUNER AND REPAIRER): I talked with her son about this. 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 I think she needs to see an human resources leader for further management of this. It is [...] 01/03/2022 Assessment & Plan (01/03/2022 12:55 PM PIPE ORGAN TUNER AND REPAIRER): Her hearing loss is relatively mild and [...] CDT Gender Identity Female 01/14/2022 6:11 AM PIPE ORGAN TUNER AND REPAIRER Sexual Orientation Straight 01/14/2022 6: 11 AM PIPE ORGAN TUNER AND REPAIRER Last Filed Vital Signs Vital Sign Reading Time Taken Comments Blood Pressure 149/81 10/05/2016 11:00 AM CDT Pulse 79 10/05/2016 11:00 AM CDT Temperature - - Respiratory Rate 18 01/02/2022 10:45 AM PIPE ORGAN TUNER AND REPAIRER Oxygen Saturation - - Inhaled Oxygen Concentration - - Weight 63.5 kg (140 lb) 01/02/2022 10:45 AM PIPE ORGAN TUNER AND REPAIRER Height 160 cm (5' 3 ) 01/02/2022 10:45 AM PIPE ORGAN TUNER AND REPAIRER Body Mass Index 24.8 01/02/2022 10:45 AM PIPE ORGAN TUNER AND REPAIRER Plan of Treatment Not on file Care Teams Candle Extrusion Machine Operator Relationship Specialty Start Date End Date Nirmal Ann MD PCP - General Family Medicine 12/25/21
== END 2024-05-19 10:43 | disposition home or self-care (01) ==
PROVIDERS: PCP Family Medicine; Visit Provider Family Medicine
DX: R10.9 Unspecified abdominal pain (principal)
CPT/HCPCS: 36415; 80053; 85025

== ENCOUNTER 2024-05-20 10:22 | Outpatient (CLI) | payer MEDICARE, SELFPAY ==
--- NOTE | ~2024-05-20 | CT_ITS ---
EXAMINATION: CT abdomen pelvis wo con DATE: 05/20/2024 10:51 INDICATION: Incontinence. Nausea. Abdominal pain. TECHNIQUE: Computed tomography (CT) of the abdomen and pelvis was performed without intravenous contr ast. Automated exposure control and iterative reconstruction technique were employed. The dose-length product was 180.03 mGy-cm. COMPARISON: None. FINDINGS: The visualized portions of the lung bases demonstrate mild atelectasis. No pleural effusion . The heart size is normal. There are coronary artery calcifications. No pericardial effusion. The li leigh ann is normal. There is a gallstone in the gallbladder, which is normal in size. Calcifications in th e spleen are consistent with old granulomatous disease. The pancreas, adrenal glands, and kidneys are normal. There is no urolithiasis. There is diverticulosis of the colon without evidence of diverticu litis. There are no dilated loops of bowel. The appendix is not visualized. There are no pathological ly enlarged lymph nodes. There is no free intraperitoneal fluid. There is severe lumbar spondylosis. IMPRESSION: 1. No etiology for the patient's symptoms. Reviewed, dictated and finalized at location A.
--- OUTSIDE RECORDS SUMMARY | 2024-05-20 11:44 | XMS_ITS | Encounter Summary ---
Author Organization [facility] Address [address] [place] [address] Care Team Providers Care Bingo Checker Name Role Phone Gladys Stoner MD Unavailable [phone] Chun Orantes MD Un[facility] Nirmal Amaro MD Primary Care Provider [phone] Encounter Details Date Type Department Care Team (Late st Contact Info) Description 07/21/2021 [employer] Message Enc [facility] [address], [facility] [address] [place], [place] [phone] Se Vargas III, MD [address] [place] [phone] Visit Follow Up Social History [...] 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
--- OUTSIDE RECORDS SUMMARY | 2024-05-20 11:45 | XMS_ITS | Encounter Summary ---
Author Organization [facility] Address [address] [place] [address] Care Team Providers Care Olive Brine Tester Name Role Phone Inder Redman MD Primary Care Provider [phone] Angelo Willson MD Unavailable Unavailab Gladys Harding MD Unavailable [phone] Chun Orantes MD Unavailable Unavailabl Nirmal Amaro MD Primary Care Provider [phone] Encounter Details Date Type Department Care Team (Late st Contact Info) Description 01/30/2016 Abstract [facility] [address] [place] [phone] Angelo Willson MD Social History Tobacco Use [...] on filedocumented in this encounter Care Teams Olive Brine Tester Relationship Specialty Start Date End Date Inder Redman MD [address] [place] [phone] PCP - General FAMILY PRACTICE 01/30/16 07/18/20 Nirmal Ann MD [address] [place], [place] [phone] PCP - General FAMILY PRACTICE 07/19/20 Angelo Willson MD [address] [place] [phone] CARDIOVASCULAR DISEASE 01/30/16 06/23/18 Gladys Stoner MD [address] [place], [place] [phone] [place] Deputy Brand Inspector CARDIOVASCULAR DISEASE 06/24/18 Chun Orantes MD [address] [place] [phone] [place] Deputy Brand Inspector CARDIOVASCULAR DISEASE 12/03/18 documented as of this encounter
--- OUTSIDE RECORDS SUMMARY | 2024-05-20 11:45 | XMS_ITS | Clinical Summary ---
Author Organization [facility] Address [address] [place] [phone] Care Team Providers Care Peripatologist Name Role Phone Nirmal Ann MD Primary Care Provider Allergies Active Allergy Reactions Criticality Noted Date Comments Erythromycin Iodine Penicillins Shellfish Containing Products Cojbqak-Gqn-Ojh Reductase Inhibitors Sulfa (Sulfonamide Antibiotics) Medications albuterol HFA (PROVENTIL HFA,VENTOLIN HFA,PROAIR HFA) 90 mcg/actuation inhaler ProAir HFA (albuterol sulfate) HFA aerosol inhaler 90 mcg/actuation; take 2 puff by mouth as directed; 0; -Aug-2014; Active 5 Active aspirin 325 mg tablet Take 1 tablet by mouth daily 5 Active C,E,zinc,copper 20-gmemm7p-idx 250-5-1 mg capsule Active carboxymethylcel lulose (REFRESH [...] 01/03/2022 Assessment & Plan (01/03/2022 12:54 PM CELL STRIPPER FINAL): I talked with her son about this. 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 I think she needs to see an gauge machine operator for further management of this. It [...] 01/03/2022 Assessment & Plan (01/03/2022 12:55 PM CELL STRIPPER FINAL): Her hearing loss is relatively mild and mostly sensorineural. She should continue with her current hearing aids. Benign paroxysmal positional vertigo 10/05/2016 Excessive cerumen in ear canal 10/05/2016 Surgical History Surgery Date Site/Laterality Comments [place] APPENDECTOMY Appendectomy - (Added by TW Conv) [place] BIOPSY BREAST OPEN INCISIONAL Biopsy Breast Open - (Added by TW Conv) [place] LIG/TRNSXJ FLP TUBE ABDL/ VAG APPR UNI/BI Tubal Ligation - (Added by TW Conv) [place] COLONOSCOPY FLX DX W/TOYA J SPEC WHEN PFRMD Colonoscopy (Fiberoptic) - (Added by TW Conv) [place] EXC CYST/ABERRANT BREAST TISSUE OPEN 1/> LESION Breast Surgery Lumpectomy - (Added by TW Conv) [place] TRABECULOPLASTY BY LASER SURGERY Anterior Chamber Laser [...] CDT Gender Identity Female 01/14/2022 6:11 AM CELL STRIPPER FINAL Sexual Orientation Straight 01/14/2022 6: 11 AM CELL STRIPPER FINAL Obstetrics History Last Filed Vital Signs Vital Sign Reading Time Taken Comments Blood Pressure 149/81 10/05/2016 11:00 AM CDT Pulse 79 10/05/2016 11:00 AM CDT Temperature - - Respiratory Rate 18 01/02/2022 10:45 AM CELL STRIPPER FINAL Oxygen Saturation - - Inhaled Oxygen Concentration - - Weight 63.5 kg (140 lb) 01/02/2022 10:45 AM CELL STRIPPER FINAL Height 160 cm (5' 3 ) 01/02/2022 10:45 AM CELL STRIPPER FINAL Body Mass Index 24.8 01/02/2022 10:45 AM CELL STRIPPER FINAL Plan of Treatment Health Maintenance Due Date Last Done Comments Depression Screening 1942 Fall Risk Assessment 1942 Osteoporosis Screening-Bone Density Scan 1942 DTaP/Tdap/Td Vaccine (1 - Tdap) 1953 Hepatitis B Screening 1960 Well Visit 65+ 08/19/2007 Influenza Vaccine (#1) 2023 , 11/17/2019, 11/27/2018, Additional history exists Pneumococcal vaccine 65+ Completed 08/19/2013, 02/27 Zoster Vaccine Completed 11/02/2018, 08/17/2018 Care Teams Peripatologist Relationship Specialty Start Date End Date Nirmal Ann MD PCP - General Family Medicine 12/25/21
--- OUTSIDE RECORDS SUMMARY | 2024-05-20 11:45 | XMS_ITS | Encounter Summary ---
Author Organization [facility] Address [facility] [place] [address] Care Team Providers Care Egg Factory Worker Name Role Phone Inder Redman MD Primary Care Provider [phone] Angelo Willson MD Unavailable Unavailab Gladys Harding MD Unavailable [phone] Chun Orantes MD Unavailable Unavailabl Nirmal Amaro MD Primary Care Provider [phone] Encounter Details Date Type Department Care Team (Late st Contact Info) Description 10/27/2014 Abstract [facility] [address] [phone] Gordon Barbour MD Social History [...] 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 Not on file Not on fi le documented as of this encounter Plan of Treatment Not on file documented as of this encounter Visit Diagnoses Not on filedocumented in this encounter Care Teams Egg Factory Worker Relationship Specialty Start Date End Date Inder Redman MD [address] [place] [phone] PCP - General FAMILY PRACTICE 01/30/16 07/18/20 Nirmal Ann MD [address] [place], [place] [phone] PCP - General FAMILY PRACTICE 07/19/20 Angelo Willson MD [address] [place] [phone] CARDIOVASCULAR DISEASE 01/30/16 06/23/18 Gladys Stoner MD [address] [place], [place] [phone] [place] Title Manager CARDIOVASCULAR DISEASE 06/24/18 Chun Orantes MD [address] [place] [phone] [place] Title Manager CARDIOVASCULAR DISEASE 12/03/18 documented as of this encounter
--- OUTSIDE RECORDS SUMMARY | 2024-05-20 11:45 | XMS_ITS | Clinical Summary ---
Author Organization [facility] Address [address] [place] [address] Care Team Providers Care Supervisor Final Name Role Phone Gladys Stoner MD Unavailable [phone] Chun Orantes MD Un[facility] Nirmal Amaro MD Primary Care Provider [phone] Allergies Active Allergy Reactions Criticality Noted Date [...] egion 07/21/2021 Palpitations 07/14/2019 Osteoporosis 10/16/2018 Syringomyelia ([facility]) 06/12/2018 Carotid stenosis, asymptomatic, bilateral [...] Recorded In the past [address] [facility] [place], oil, or water [employer] threatened to shut off services in your [...] place to sleep or slept in a chcf (including now)? 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 Not on file Not on fi le Last Filed Vital Signs Vital Sign Reading Time Taken Comments Blood Pressure 139/45 01/29/2023 1:48 PM INSTALLER [employer]IOR [employer]SEM[employer] Pulse 73 01/29/2023 1:48 PM INSTALLER INTERIOR ASSEMBLIES Temperature 36.1 C (97 F) 01/29/2023 1:48 PM INSTALLER INTERIOR ASSEMBLIES Respiratory Rate 18 01/29/2023 1:48 PM INSTALLER INTERIOR ASSEMBLIES Oxygen Saturation 97% 01/29/2023 1:48 PM INSTALLER INTERIOR ASSEMBLIES Inhaled Oxygen Concentration - - Weight 52.2 kg (115 lb) 01/27/2023 2:35 PM INSTALLER INTERIOR ASSEMBLIES Height 157.5 cm (5' 2 ) 01/27/2023 2:35 PM INSTALLER INTERIOR ASSEMBLIES Body Mass Index 21.03 01/27/2023 2:35 PM INSTALLER INTERIOR ASSEMBLIES Plan of Treatment Health Maintenance Due Date [...] Documents on File Type Date Recorded Patient Textile Converter Expl anation Advance Directives and Livin g Will 01/30/2023 8:03 AM * Full Code (Latest Code Status on File) Date Activated Date Inactivated Comments 01/27/2023 2:42 PM 01/29/2023 5:38 PM Care Teams Supervisor Final Relationship Specialty Start Date End Date Nirmal Hdz MD [address] [place] [phone] PCP - General FAMILY PRACTICE 07/19/20 Gladys Stoner MD [employer] Junior Paralegal CARDIOVASCULAR DISEASE 06/24/18 Chun Orantes MD [employer] Paralegal CARDIOVASCULAR DISEASE 12/03/18
--- OUTSIDE RECORDS SUMMARY | 2024-05-20 11:45 | XMS_ITS | Encounter Summary ---
Author Organization [facility] Address [address] [place] [address] Care Team Providers Care Production Machine Tender Name Role Phone Inder Redman MD Primary Care Provider [phone] Gladys Stoner MD Unavailable [phone] Chun Orantes MD Unavailable Unavailabl e Nirmal Ann MD Primary Care Provider [phone] Encounter Details Date Type Department Care Team (Late st Contact Info) Description 08/02/2018 Abstract SFL CONVERSION [address] [place] [address] , Generic Conversion, Social History [...] on filedocumented in this encounter Care Teams Production Machine Tender Relationship Specialty Start Date End Date Inder Redman MD [address] [place] [phone] PCP - General FAMILY PRACTICE 01/30/16 07/18/20 Nirmal Ann MD [address] [place] [phone] PCP - General FAMILY PRACTICE 07/19/20 Gladys Stoner MD [address] [place] [phone] [employer] Converter Operator Helper CARDIOVASCULAR DISEASE 06/24/18 Chun Orantes MD [address] [place] [phone] [employer]ytic Converter Operator Helper CARDIOVASCULAR DISEASE 12/03/18 documented as of this encounter
--- OUTSIDE RECORDS SUMMARY | 2024-05-20 11:45 | XMS_ITS | Referral Summary ---
Author Organization [facility] Address [address] [place] [phone] Care Team Providers Care Motion Picture Narrator Name Role Phone Nirmal Ann MD Primary Care Provider Allergies Active Allergy Reactions Criticality Noted Date Comments Erythromycin Iodine Penicillins Shellfish Containing Products Orfrepv-Cuq-Tld Reductase Inhibitors Sulfa (Sulfonamide Antibiotics) Medications albuterol HFA (PROVENTIL HFA,VENTOLIN HFA,PROAIR HFA) 90 mcg/actuation inhaler ProAir HFA (albuterol sulfate) HFA aerosol inhaler 90 mcg/actuation; take 2 puff by mouth as directed; 0; -Aug-2014; Active 5 Active aspirin 325 mg tablet Take 1 tablet by mouth daily 5 Active C,E,zinc,copper 70-ficiz6t-zdm 250-5-1 mg capsule Active carboxymethylcel lulose (REFRESH [...] 01/03/2022 Assessment & Plan (01/03/2022 12:54 PM MAT INSPECTOR): I talked with her son about this. 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 I think she needs to see an stamping die maker for further management of this. It is [...] 01/03/2022 Assessment & Plan (01/03/2022 12:55 PM MAT INSPECTOR): Her hearing loss is relatively mild and [...] CDT Gender Identity Female 01/14/2022 6:11 AM MAT INSPECTOR Sexual Orientation Straight 01/14/2022 6: 11 AM MAT INSPECTOR Last Filed Vital Signs Vital Sign Reading Time Taken Comments Blood Pressure 149/81 10/05/2016 11:00 AM CDT Pulse 79 10/05/2016 11:00 AM CDT Temperature - - Respiratory Rate 18 01/02/2022 10:45 AM MAT INSPECTOR Oxygen Saturation - - Inhaled Oxygen Concentration - - Weight 63.5 kg (140 lb) 01/02/2022 10:45 AM MAT INSPECTOR Height 160 cm (5' 3 ) 01/02/2022 10:45 AM MAT INSPECTOR Body Mass Index 24.8 01/02/2022 10:45 AM MAT INSPECTOR Plan of Treatment Not on file Care Teams Motion Picture Narrator Relationship Specialty Start Date End Date Nirmal Ann MD PCP - General Family Medicine 12/25/21
--- OUTSIDE RECORDS SUMMARY | 2024-05-20 11:45 | XMS_ITS | Clinical Summary ---
Author Organization [facility] Address [address] [facility] [place] [address] Care Team Providers Care Printing Manager Name Role Phone Inder Redman MD Primary Care Provider [phone] Source Comments [facility],non-owned Affiliates and Associated Physician Practices is amultiple site organization consisting of ambulatory clinics and hospital sitesin [place], [place], [place] and [place]. This disclosure is being madepursuant to the Care Everywhere program and may not contain all information available regarding this patient. Last updated 17.[facility] Allergies Active Allergy Reactions Criticality Noted Date [...] age to complete this topic Care Teams Printing Manager Relationship Specialty Start Date End Date Inder Redman MD [address] [place] [phone] PCP - General 12/05/07
== END 2024-05-20 10:23 | disposition home or self-care (01) ==
PROVIDERS: PCP Family Medicine; Visit Provider Family Medicine
DX: R10.9 Unspecified abdominal pain (principal)
CPT/HCPCS: 74176

== ENCOUNTER 2024-06-22 15:39 | Emergency (ER) | payer MEDICARE, SELFPAY ==
--- NOTE | ~2024-06-22 | CT_ITS ---
CT brain wo con Ordering provider: Bhaskar Salinas MD History: 83 years Female with . blurred vision, headache . Comparison: None. Technique: CT of the head without contrast. Radiation reduction technique utilized.The dose-length pr oduct was 605.33 mGy-cm. FINDINGS: BRAIN PARENCHYMA AND CSF SPACES: Mild leukoaraiosis and diffuse cortical atrophy. Mild atheromatous d isease. Old lacunar infarct in the right basal ganglia. No midline shift, mass effect or hemorrhage. The brain parenchyma and CSF spaces are otherwise normal. VISUALIZED PARANASAL SINUSES: Well aerated. MASTOIDS: Well aerated. BONES: The bones appear intact. SOFT TISSUES: Visualized nasopharynx is normal. Superficial soft tissues are normal. IMPRESSION: No acute intracranial findings. Reviewed, dictated and finalized at location A.
[2024-06-22 15:40] VITALS: BP 228/103; PULSE 67; RESP 18; TEMP 36.6; O2SAT 99
[2024-06-22 15:45] VITALS: BP 224/97; PULSE 70; RESP 18; O2SAT 98
[2024-06-22 16:30] VITALS: BP 195/83; PULSE 62; RESP 18; O2SAT 98
--- NOTE | 2024-06-22 16:47 | ED_ITS ---
HPI - Headache General Chief Complaint: Headache Stated Complaint: vision changes Time Seen by Provider: 06/22/24 15:54 Source: patient Mode of arrival: ambulatory Limitations: no limitations History of Present Illness HPI Narrative: patient states that she saw all red and blue collars coming out of her left eye earlier today. She has a history of migraines and apparently has headaches every day. Her living facility says that she has a hypochondriac and always has headaches or something wrong with her. Today it was seeing different colors of her left thigh and she said it felt differently than her normal migraine aura. She says currently she has no symptoms the colors when away and she has no headache. MD elicited complaint: other Pertinent past history: migraines Onset (ago): hour(s) Onset description: suddenly Location: left Exacerbating factors: none Relieving factors: nothing Associated symptoms: other ( strange vision colors at the left thigh) Related Data Home Medications ?Medication ?Instructions ?Recorded ?Confirmed ?Last Taken ?Type Lactobacillus rhamnosus GG 10 1 cap PO DAILY 11/12/19 Unknown History billion cell capsule (Culturelle) aspirin 325 mg tablet 325 mg PO DAILY 11/12/19 Unknown History cholecalciferol (vitamin D3) 25 25 mcg PO DAILY 11/12/19 Unknown History mcg (1,000 unit) capsule losartan 100 1 tablet PO DAILY 11/12/19 Unknown History mg-hydrochlorothiazide 12.5 mg tablet mecobalamin (vitamin B12) 1,000 1,000 mcg PO DAILY 11/12/19 Unknown History mcg chewable tablet propranolol 10 mg tablet 10 mg PO Q6H 11/12/19 Unknown History rosuvastatin 5 mg tablet (Crestor) 2.5 mg PO DAILY 11/12/19 Unknown History tobramycin 0.3 %-dexamethasone 0.1 1 drop RIGHT EYE ONCE 11/12/19 Unknown History % eye drops,suspension (TobraDex) vit C,E,zinc,copper-iqdts0r 250 1 cap PO DAILY 11/12/19 Unknown History mg-lutein 5 mg-zeaxanthin 1 mg capsule (Ocuvite Adult 50 Plus) Allergies Allergy/AdvReac Type Severity Reaction Status Date / Time atorvastatin (From Lipitor) Allergy Unknown Verified 06/22/24 15:42 cerivastatin (From Baycol) Allergy Unknown Verified 06/22/24 15:42 colestipol (From Colestid) Allergy Unknown Verified 06/22/24 15:42 erythromycin base Allergy Unknown Verified 06/22/24 15:42 ezetimibe (From Zetia) Allergy Unknown Verified 06/22/24 15:42 fenofibrate (From Tricor) Allergy Unknown Verified 06/22/24 15:42 fluvastatin (From Lescol) Allergy Unknown Verified 06/22/24 15:42 iodine Allergy Unknown Verified 06/22/24 15:42 Penicillins Allergy Unknown Verified 06/22/24 15:42 pravastatin (From Pravachol) Allergy Unknown Verified 06/22/24 15:42 quinapril (From Accupril) Allergy Unknown Verified 06/22/24 15:42 shellfish derived Allergy Unknown Verified 06/22/24 15:42 simvastatin (From Zocor) Allergy Unknown Verified 06/22/24 15:42 Sulfa (Sulfonamide Allergy Unknown Verified 06/22/24 15:42 Antibiotics) sulfamethoxazole (From Allergy Unknown Verified 06/22/24 15:42 Bactrim) tetracycline Allergy Unknown Verified 06/22/24 15:42 trimethoprim (From Bactrim) Allergy Unknown Verified 06/22/24 15:42 Review of Systems Review of Systems: All systems reviewed & are unremarkable except as noted in HPI and below Constitutional: Constitutional: Reports as per HPI Eyes: Eyes: Reports as per HPI ENT: Reports system reviewed and no additional complaints, except as documented Cardiovascular: Cardiovascular: Reports no additional cardiovascular complaints Respiratory: Respiratory: Reports no additional respiratory complaints Gastrointestinal: Gastrointestinal: Reports no additional gastrointestinal complaints Genitourinary: Genitourinary: Reports no additional female genitourinary complaints Musculoskeletal: Musculoskeletal: Reports no additional musculoskeletal complaints Integumentary/Breasts: Skin/Breast: Reports system reviewed and no additional complaints, except as docu Neurologic: Reports system reviewed and no additional complaints, except as documented Psychiatric: Psychiatric: Reports no additional psychiatric complaints Endocrine: Endocrine: Reports no additional endocrine complaints Hematologic/Lymphatic: Hematologic/Lymphatic: Reports no additional hematologic/lymphatic complaints Allergic/Immunologic: Allergic/Immunologic: Reports no additional allergic/immunologic complaints PMFSH Past Medical History Medical History H/O barium enema Surgical History Surgical History H/O left breast biopsy H/O cataract removal with insertion of prosthetic lens Status post glaucoma surgery H/O partial mastectomy History of colonoscopy History of trabeculectomy H/O tubal ligation H/O right breast biopsy History of appendectomy Family History Family History Mother Dementia Alzheimers disease Father Heart disease Heart attack Grandparent Stomach cancer Social History Social History Smoking packs per day: 0.5 Smoking cigarettes per day: 10.0 Years smoked: 50 Smoking pack-years: 25.00 Smoking status: Current every day smoker Tobacco type: cigarettes Alcohol intake: never Substance use: never Living arrangements: with family Occupation/Education: retired Gender identity (if verbalized by the patient): Female Exam Const: General: healthy appearing Nutritional Appearance: well nourished Orientation/consciousness: patient oriented x3 Limitations: no limitations HENMT: Head: normal to inspection Ears: external ears normal Face/Nose/Sinus: Normal external nose present Face and sinus: normal facial exam Mouth: Yes Normal oral and palatal mucosa present Eyes: Conjunctivae: conjunctivae normal Pupils: Equal, round and reactive pupils present EOM: EOMs intact bilaterally Neck: Neck: normal visual inspection Chest: Chest palpation & inspection: normal inspection of the chest Resp: Effort & Inspection: normal respiratory effort Auscultation: clear to auscultation bilaterally Cardio: Rate: regular rate Rhythm: regular rhythm Heart sounds: Murmur heart sound present GI: GI Palp: Yes Soft to palpation Back/Spine/Pelvis: Back: no CVA tenderness Skin: General skin exam: normal color Rashes: no rashes Wounds: no wounds Neuro: General: patient oriented x3 Cranial nerves: Yes Nystagmus not present Speech: normal speech Extrem: General: normal to inspection Psych: Mental Status: mental status grossly normal Affect: normal affect Attitude: cooperative Course Vital Signs Vital signs: Vital Signs Oxygen Delivery Room Air 06/22/24 15:39 Temperature 97.9 F 06/22/24 15:40 Pulse Rate 67 06/22/24 15:40 Respiratory Rate 18 06/22/24 15:40 Blood Pressure 228/103 H 06/22/24 15:40 Pulse Oximetry 99 06/22/24 15:40 Oxygen Delivery Room Air 06/22/24 15:40 MDM - Headache MDM Narrative Medical decision making narrative: patient is asymptomatic now and has no symptoms at all will do a CT of the brain tensor there are now infarcts. She is also hypertensive and will give her some Catapres for the hypertension. She says she did take her hypertensive medications this morning but has not taken any of her daytime medications. CT scan showed no abnormalities. Her blood pressure has steadily dropped and she can be released on now. Discharge Plan Discharge Clinical Impression: Disturbance, visual, psychophysical Patient Disposition: Home Condition: Stable Instructions: Blurred Vision (ED) Patient Language: Romanian Prescriptions: No Action propranolol 10 mg tablet 10 mg PO Q6H losartan-hydrochlorothiazide 100-12.5 mg tablet 1 tablet PO DAILY rosuvastatin [Crestor] 5 mg tablet 2.5 mg PO DAILY aspirin 325 mg tablet 325 mg PO DAILY tobramycin-dexamethasone [TobraDex] 0.3-0.1 % drops,suspension 1 drop RIGHT EYE ONCE cholecalciferol (vitamin D3) 25 mcg (1,000 unit) capsule 25 mcg PO DAILY Culturelle 10 billion cell capsule 1 cap PO DAILY Ocuvite Adult 50 Plus 250-5-1 mg capsule 1 cap PO DAILY mecobalamin (vitamin B12) 1,000 mcg tablet,chewable 1,000 mcg PO DAILY Follow-up/Referrals: Marissa,MD Nirmal [Primary Care Provider] - Time of Disposition: 17:44
[2024-06-22] MEDS: cloNIDine HCL 0.2 MG TABLET PO (16:51)
[2024-06-22 17:00] VITALS: BP 192/91; PULSE 62; RESP 18; O2SAT 97
--- NOTE | 2024-06-22 17:28 | PC.NURSE ---
PT IS LYING ON STRETCHER IN EXAM ROOM AWAITING BLOOD PRESSURE RECHECK, PT DENIES ANY HEADACHE OR VISION CHANGES AT THIS TIME, NONE DURING ED VISIT. WILL CONTINUE TO MONITOR.
[2024-06-22 17:43] VITALS: BP 187/90; PULSE 68; RESP 18; O2SAT 98
--- OUTSIDE RECORDS SUMMARY | 2024-06-22 17:44 | XMS_ITS | Encounter Summary ---
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
--- OUTSIDE RECORDS SUMMARY | 2024-06-22 17:44 | XMS_ITS | Referral Summary ---
Author Organization [facility] Address [address] [place] [phone] Care Team Providers Care Cloth Winding Supervisor Name Role Phone Nirmal Ann MD Primary Care Provider Allergies Active Allergy Reactions Criticality Noted Date Comments Erythromycin Iodine Penicillins Shellfish Containing Products Vzblqct-Gmh-Izv Reductase Inhibitors Sulfa (Sulfonamide Antibiotics) Medications albuterol HFA (PROVENTIL HFA,VENTOLIN HFA,PROAIR HFA) 90 mcg/actuation inhaler ProAir HFA (albuterol sulfate) HFA aerosol inhaler 90 mcg/actuation; take 2 puff by mouth as directed; 0; -Aug-2014; Active 5 Active aspirin 325 mg tablet Take 1 tablet by mouth daily 5 Active C,E,zinc,copper 17-wvmoi8q-vbq 250-5-1 mg capsule Active carboxymethylcel lulose (REFRESH [...] 01/03/2022 Assessment & Plan (01/03/2022 12:54 PM DOG OBEDIENCE INSTRUCTOR): I talked with her son about this. 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 I think she needs to see an head cager for further management of this. It is [...] 01/03/2022 Assessment & Plan (01/03/2022 12:55 PM DOG OBEDIENCE INSTRUCTOR): Her hearing loss is relatively mild and [...] CDT Gender Identity Female 01/14/2022 6:11 AM DOG OBEDIENCE INSTRUCTOR Sexual Orientation Straight 01/14/2022 6: 11 AM DOG OBEDIENCE INSTRUCTOR Last Filed Vital Signs Vital Sign Reading Time Taken Comments Blood Pressure 149/81 10/05/2016 11:00 AM CDT Pulse 79 10/05/2016 11:00 AM CDT Temperature - - Respiratory Rate 18 01/02/2022 10:45 AM DOG OBEDIENCE INSTRUCTOR Oxygen Saturation - - Inhaled Oxygen Concentration - - Weight 63.5 kg (140 lb) 01/02/2022 10:45 AM DOG OBEDIENCE INSTRUCTOR Height 160 cm (5' 3 ) 01/02/2022 10:45 AM DOG OBEDIENCE INSTRUCTOR Body Mass Index 24.8 01/02/2022 10:45 AM DOG OBEDIENCE INSTRUCTOR Plan of Treatment Not on file Care Teams Cloth Winding Supervisor Relationship Specialty Start Date End Date Nirmal Ann MD PCP - General Family Medicine 12/25/21
--- OUTSIDE RECORDS SUMMARY | 2024-06-22 17:44 | XMS_ITS | Clinical Summary ---
Author Organization [facility] Address [address] [place] [address] Care Team Providers Care Appliance Assembler Name Role Phone Gladys Stoner MD Unavailable [phone] Chun Orantes MD Unavailable [phone] Nirmal Hdz MD Primary Care Provider Allergies Active Allergy [...] by mouth as directed; 0; -Aug-2014; Active 09/14/2014 Active Cholecalciferol (VITAMIN D) 50 [...] egion 07/21/2021 Palpitations 07/14/2019 Osteoporosis 10/16/2018 Syringomyelia ([facility]) 06/12/2018 Carotid stenosis, asymptomatic, bilateral 2017 Essential [...] drink = 0.6 oz pur e alcohol) [facility] Utilities Answer Date Recorded In the past 12 months has [facility] [employer], oil, or water [employer] threatened to shut off services in your [...] place to sleep or slept in a fdc (including now)? No 01/27/2023 Comments No Sex [...] Comments Blood Pressure 139/45 01/29/2023 1:48 PM WAFFLE MACHINE OPERATOR Pulse 73 01/29/2023 1:48 PM WAFFLE MACHINE OPERATOR Temperature 36.1 C (97 F) 01/29/2023 1:48 PM WAFFLE MACHINE OPERATOR Respiratory Rate 18 01/29/2023 1:48 PM WAFFLE MACHINE OPERATOR Oxygen Saturation 97% 01/29/2023 1:48 PM WAFFLE MACHINE OPERATOR Inhaled Oxygen Concentration - - Weight 52.2 kg (115 lb) 01/27/2023 2:35 PM WAFFLE MACHINE OPERATOR Height 157.5 cm (5' 2 ) 01/27/2023 2:35 PM WAFFLE MACHINE OPERATOR Body Mass Index 21.03 01/27/2023 2:35 PM WAFFLE MACHINE OPERATOR Plan of Treatment Health Maintenance Due Date Last Done Comments DTaP, Tdap and Td Vaccines ( 1 - Tdap) 1959 Annual Medicare Wellness Visit 08/19/2007 Pneumococcal Vaccine: 50+ Years (2 of 2 - PPSV23) 05/21/2012 03/26/2012 RSV Immunization or 60+ Years (1 - 1-dose 75+ series) 2017 COVID-19 Vaccine ( - 2023-2 5 season) 2023 Zoster Vaccines Completed 11/02/2018, 08/17/2018 Dexa [...] Recently Relevant to Health Maintenance [place] [address] Advance Directives Documents on File Type Date Recorded Patient Branch Credit Counselor Expl anation Advance Directives and Livin g Will 01/30/2023 8:03 AM * Full Code (Latest Code Status on File) Date Activated Date Inactivated Comments 01/27/2023 2:42 PM 01/29/2023 5:38 PM Care Teams Appliance Assembler Relationship Specialty Start Date End Date Nirmal Hdz MD [address] [place] [phone] PCP - General FAMILY PRACTICE 07/19/20 Gladys Stoner MD [place] Preflight Inspector CARDIOVASCULAR DISEASE 06/24/18 Chun Orantes MD [address] [place] [phone] [place] Preflight Inspector CARDIOVASCULAR DISEASE 12/03/18
--- OUTSIDE RECORDS SUMMARY | 2024-06-22 17:44 | XMS_ITS | Clinical Summary ---
Author Organization [facility] Address [address] [place] [address] Care Team Providers Care Chemical Laboratory Scientist Name Role Phone Nirmal Ann MD Primary Care Provider [phone] Allergies Active Allergy Reactions Criticality Noted Date Comments Erythromycin Iodine Penicillins Shellfish Containing Products Uydtbiq-Tjt-Wuy Reductase Inhibitors Sulfa (Sulfonamide Antibiotics) Medications albuterol HFA (PROVENTIL HFA,VENTOLIN HFA,PROAIR HFA) 90 mcg/actuation inhaler ProAir HFA (albuterol sulfate) HFA aerosol inhaler 90 mcg/actuation; take 2 puff by mouth as directed; 0; -Aug-2014; Active 5 Active aspirin 325 mg tablet Take 1 tablet by mouth daily 5 Active C,E,zinc,copper 35-iluvp7f-ggn 250-5-1 mg capsule Active carboxymethylcel lulose (REFRESH [...] 01/03/2022 Assessment & Plan (01/03/2022 12:54 PM CHUCKING MACHINE OPERATOR): I talked with her son about this. 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 I think she needs to see an pt skilled for further management of this. 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 She should continue with her current hearing aids. Benign paroxysmal positional vertigo 10/05/2016 Excessive cerumen in ear canal 10/05/2016 Surgical History Surgery Date Site/Laterality Comments [place] APPENDECTOMY Appendectomy - (Added by TW Conv) [place] BIOPSY BREAST OPEN INCISIONAL Biopsy Breast Open - (Added by TW Conv) [place] LIG/TRNSXJ FLP TUBE ABDL/ VAG APPR UNI/BI Tubal Ligation - (Added by TW Conv) [place] COLONOSCOPY FLX DX W/TOYA J SPEC WHEN PFRMD Colonoscopy (Fiberoptic) - (Added by TW Conv) [place] EXC CYST/ABERRANT BREAST TISSUE OPEN 1/> LESION Breast Surgery Lumpectomy - (Added by TW Conv) [place] TRABECULOPLASTY BY LASER SURGERY Anterior Chamber Laser [...] CDT Gender Identity Female 01/14/2022 6:11 AM CHUCKING MACHINE OPERATOR Sexual Orientation Straight 01/14/2022 6: 11 AM CHUCKING MACHINE OPERATOR Obstetrics History Last Filed Vital Signs Vital Sign Reading Time Taken Comments Blood Pressure 149/81 10/05/2016 11:00 AM CDT Pulse 79 10/05/2016 11:00 AM CDT Temperature - - Respiratory Rate 18 01/02/2022 10:45 AM CHUCKING MACHINE OPERATOR Oxygen Saturation - - Inhaled Oxygen Concentration - - Weight 63.5 kg (140 lb) 01/02/2022 10:45 AM CHUCKING MACHINE OPERATOR Height 160 cm (5' 3 ) 01/02/2022 10:45 AM CHUCKING MACHINE OPERATOR Body Mass Index 24.8 01/02/2022 10:45 AM CHUCKING MACHINE OPERATOR Plan of Treatment Health Maintenance Due Date Last Done Comments Depression Screening 1942 Fall Risk Assessment 1942 Osteoporosis Screening-Bone Density Scan 1942 DTaP/Tdap/Td Vaccine (1 - Tdap) 1953 Hepatitis B Screening 1960 Well Visit 65+ 08/19/2007 Influenza Vaccine (Season Ended) 2024 11/11/2020, 11/17/2019, 11/27/2018, Additional history exists Pneumococcal vaccine 65+ Completed 08/19/2013, 02/27 Zoster Vaccine Completed 11/02/2018, 08/17/2018 Care Teams Chemical Laboratory Scientist Relationship Specialty Start Date End Date Nirmal Ann MD PCP - General Family Medicine 12/25/21
--- OUTSIDE RECORDS SUMMARY | 2024-06-22 17:44 | XMS_ITS | Encounter Summary ---
Author Organization [facility] Address [address] [place] [address] Care Team Providers Care Resin Remover Name Role Phone Inder Redman MD Primary Care Provider [phone] Angelo Willson MD Unavailable Unavailab Gladys Harding MD Unavailable [phone] Chun Orantes MD Unavailable [phone] Nirmal Ann MD Primary Care Provider [phone] Encounter Details Date Type Department Care Team (Late st Contact Info) Description 01/30/2016 Abstract [facility] AT [address] [place] [address] Angelo Willson MD Social History Tobacco Use [...] 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 Not on file Not on fi le documented as of this encounter Plan of Treatment Not on file documented as of this encounter Visit Diagnoses Not on filedocumented in this encounter Care Teams Resin Remover Relationship Specialty Start Date End Date Inder Redman MD [address] [place] [phone] PCP - General FAMILY PRACTICE 01/30/16 07/18/20 Nirmal Ann MD [address] [place] [phone] PCP - General FAMILY PRACTICE 07/19/20 Angelo Willson MD [address] [place] [phone] CARDIOVASCULAR DISEASE 01/30/16 06/23/18 Gladys Stoner MD [address] [place], [place] [phone] [employer] Manufacturer CARDIOVASCULAR DISEASE 06/24/18 Chun Orantes MD [address] [place] [address] [employer] Manufacturer CARDIOVASCULAR DISEASE 12/03/18 documented as of this encounter
--- OUTSIDE RECORDS SUMMARY | 2024-06-22 17:44 | XMS_ITS | Encounter Summary ---
Author Organization [facility] Address [facility] [place] [address] Care Team Providers Care Oil Sales And Service Rep Name Role Phone Inder Redman MD Primary Care Provider [phone] Angelo Willson MD Unavailable Unavailab Gladys Harding MD Unavailable [phone] Chun Orantes MD Unavailable [phone] Nirmal Ann MD Primary Care Provider [phone] Encounter Details Date Type Department Care Team (Late st Contact Info) Description 10/27/2014 Abstract [facility] AT [address] [address] Gordon Barbour MD Social History [...] 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 Not on file Not on le documented as of this encounter Plan of Treatment Not on file documented as of this encounter Visit Diagnoses Not on filedocumented in this encounter Care Teams Oil Sales And Service Rep Relationship Specialty Start Date End Date Inder Redman MD [address] [place] [phone] PCP - General FAMILY PRACTICE 01/30/16 07/18/20 Nirmal Ann MD [address] [place] [phone] PCP - General FAMILY PRACTICE 07/19/20 Angelo Willson MD [address] [place] [phone] CARDIOVASCULAR DISEASE 01/30/16 06/23/18 Gladys Stoner MD [address] [place], [place] [phone] [employer] Advisor CARDIOVASCULAR DISEASE 06/24/18 Chun Orantes MD [address] [place] [address] [employer] Advisor CARDIOVASCULAR DISEASE 12/03/18 documented as of this encounter
--- OUTSIDE RECORDS SUMMARY | 2024-06-22 17:44 | XMS_ITS | Clinical Summary ---
Author Organization [facility] Address [address] [facility] [place] [address] Care Team Providers Care Stitch Bonding Machine Drawer In Name Role Phone Inder Redman MD Primary Care Provider [phone] Source Comments [facility],non-owned Affiliates and Associated Physician Practices is amultiple site organization consisting of ambulatory clinics and hospital sitesin [place], [place], [place] and [place]. This disclosure is being madepursuant to the Care Everywhere program and may not contain all information available regarding this patient. 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
--- OUTSIDE RECORDS SUMMARY | 2024-06-22 17:44 | XMS_ITS | Encounter Summary ---
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 Not on file Not on le documented as of this encounter Plan of Treatment Not on file documented as of this encounter Visit Diagnoses Not on filedocumented in this encounter Care Teams Telephone Ad Taker Relationship Specialty Start Date End Date Inder Redman MD [address] [place] [phone] PCP - General FAMILY PRACTICE 01/30/16 07/18/20 Nirmal Ann MD [address] [place] [phone] PCP - General FAMILY PRACTICE 07/19/20 Gladys Stoner MD [address] [place] [phone] [employer] Stock Checker CARDIOVASCULAR DISEASE 06/24/18 Chun Orantes MD [address] [place] [phone] [employer] Stock Checker CARDIOVASCULAR DISEASE 12/03/18 documented as of this encounter
[2024-06-22 17:48] VITALS: BP 160/84; PULSE 68; RESP 18; TEMP 36.7; O2SAT 98
--- OUTSIDE RECORDS SUMMARY | 2024-06-22 18:11 | XMS_ITS | Encounter Summary ---
Author Organization [facility] Address [address] [place] [address] Care Team Providers Care Ordnance Truck Installation Supervisor Name Role Phone Inder Redman MD Primary Care Provider [phone] Angelo Willson MD Unavailable Unavailab Gladys Harding MD Unavailable [phone] Chun Orantes MD Unavailable [phone] Nirmal Ann MD Primary Care Provider [phone] Encounter Details Date Type Department Care Team (Late st Contact Info) Description 01/30/2016 Abstract [facility] AT [address] [place] [address] Angelo Willson MD Social History Tobacco Use [...] Start Date 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 Not on file Not on file Not on fi le documented as of this encounter Plan of Treatment Not on file documented as of this encounter Visit Diagnoses Not on filedocumented in this encounter Care Teams Ordnance Truck Installation Supervisor Relationship Specialty Start Date End Date Inder Redman MD [address] [place] [phone] PCP - General FAMILY PRACTICE 01/30/16 07/18/20 Nirmal Ann MD [address] [place] [phone] PCP - General FAMILY PRACTICE 07/19/20 Angelo Willson MD [address] [place] [phone] CARDIOVASCULAR DISEASE 01/30/16 06/23/18 Gladys Stoner MD [address] [place], [place] [phone] [place] Buff[employer] Former Machine CARDIOVASCULAR DISEASE 06/24/18 Chun Orantes MD [address] [place] [address] [place] Buffing Wheel Former Machine CARDIOVASCULAR DISEASE 12/03/18 documented as of this encounter
--- OUTSIDE RECORDS SUMMARY | 2024-06-22 18:11 | XMS_ITS | Clinical Summary ---
Author Organization [facility] Address [address] [place] [address] Care Team Providers Care Dentures Lab Technician Name Role Phone Gladys Stoner MD Unavailable [phone] Chun rOantes MD Unavailable [phone] Nirmal Hdz MD Primary Care Provider Allergies [...] egion 07/21/2021 Palpitations 07/14/2019 Osteoporosis 10/16/2018 Syringomyelia ([facility]) 06/12/2018 Carotid stenosis, asymptomatic, bilateral 2017 Essential [...] drink = 0.6 oz pur e alcohol) [facility] Utilities Answer Date Recorded In the past 12 months has [facility] [employer], oil, or water [employer] threatened to shut off services in your [...] place to sleep or slept in a retirement (including now)? 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 Not on file Not on fi le Last Filed Vital Signs Vital Sign Reading Time Taken Comments Blood Pressure 139/45 01/29/2023 1:48 PM TECHNICAL FELLOW Pulse 73 01/29/2023 1:48 PM TECHNICAL FELLOW Temperature 36.1 C (97 F) 01/29/2023 1:48 PM TECHNICAL FELLOW Respiratory Rate 18 01/29/2023 1:48 PM TECHNICAL FELLOW Oxygen Saturation 97% 01/29/2023 1:48 PM TECHNICAL FELLOW Inhaled Oxygen Concentration - - Weight 52.2 kg (115 lb) 01/27/2023 2:35 PM TECHNICAL FELLOW Height 157.5 cm (5' 2 ) 01/27/2023 2:35 PM TECHNICAL FELLOW Body Mass Index 21.03 01/27/2023 2:35 PM TECHNICAL FELLOW Plan of Treatment Health Maintenance Due Date [...] Recently Relevant to Health [place] [address] Advance Directives Documents on File Type Date Recorded Patient Thread Laster Expl anation Advance Directives and Livin g Will 01/30/2023 8:03 AM * Full Code (Latest Code Status on File) Date Activated Date Inactivated Comments 01/27/2023 2:42 PM 01/29/2023 5:38 PM Care Teams Dentures Lab Technician Relationship Specialty Start Date End Date Nirmal Hdz MD [address] [place] [phone] PCP - General FAMILY PRACTICE 07/19/20 Gladys Stoner MD [place] Bank Manager CARDIOVASCULAR DISEASE 06/24/18 Chun Orantes MD [address] [place] [address] [place] Bank Manager CARDIOVASCULAR DISEASE 12/03/18
--- OUTSIDE RECORDS SUMMARY | 2024-06-22 18:11 | XMS_ITS | Referral Summary ---
Author Organization [facility] Address [address] [place] [phone] Care Team Providers Care Dean Of Boys Name Role Phone Nirmal Ann MD Primary Care Provider Allergies Active Allergy Reactions Criticality Noted Date Comments Erythromycin Iodine Penicillins Shellfish Containing Products Vtwlpgk-Xlg-Gkq Reductase Inhibitors Sulfa (Sulfonamide Antibiotics) Medications albuterol HFA (PROVENTIL HFA,VENTOLIN HFA,PROAIR HFA) 90 mcg/actuation inhaler ProAir HFA (albuterol sulfate) HFA aerosol inhaler 90 mcg/actuation; take 2 puff by mouth as directed; 0; -Aug-2014; Active 5 Active aspirin 325 mg tablet Take 1 tablet by mouth daily 5 Active C,E,zinc,copper 45-mqcqg9d-pxh 250-5-1 mg capsule Active carboxymethylcel lulose (REFRESH [...] 01/03/2022 Assessment & Plan (01/03/2022 12:54 PM PRESIDENT/GM PRODUCTION & LIVE EXPERIENCES): I talked with her son about this. 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 I think she needs to see an general operations agent for further management of this. It is [...] 01/03/2022 Assessment & Plan (01/03/2022 12:55 PM PRESIDENT/GM PRODUCTION & LIVE EXPERIENCES): Her hearing loss is relatively mild and [...] CDT Gender Identity Female 01/14/2022 6:11 AM PRESIDENT/GM PRODUCTION & LIVE EXPERIENCES Sexual Orientation Straight 01/14/2022 6: 11 AM PRESIDENT/GM PRODUCTION & LIVE EXPERIENCES Last Filed Vital Signs Vital Sign Reading Time Taken Comments Blood Pressure 149/81 10/05/2016 11:00 AM CDT Pulse 79 10/05/2016 11:00 AM CDT Temperature - - Respiratory Rate 18 01/02/2022 10:45 AM PRESIDENT/GM PRODUCTION & LIVE EXPERIENCES Oxygen Saturation - - Inhaled Oxygen Concentration - - Weight 63.5 kg (140 lb) 01/02/2022 10:45 AM PRESIDENT/GM PRODUCTION & LIVE EXPERIENCES Height 160 cm (5' 3 ) 01/02/2022 10:45 AM PRESIDENT/GM PRODUCTION & LIVE EXPERIENCES Body Mass Index 24.8 01/02/2022 10:45 AM PRESIDENT/GM PRODUCTION & LIVE EXPERIENCES Plan of Treatment Not on file Care Teams Dean Of Boys Relationship Specialty Start Date End Date Nirmal Ann MD PCP - General Family Medicine 12/25/21
--- OUTSIDE RECORDS SUMMARY | 2024-06-22 18:11 | XMS_ITS | Encounter Summary ---
Author Organization [facility] Address [facility] [place] [address] Care Team Providers Care Ramp And Cargo Supervisor Name Role Phone Inder Redman MD Primary Care Provider [phone] Angelo Willson MD Unavailable Unavailab Gladys Harding MD Unavailable [phone] Chun Orantes MD Unavailable [phone] Nirmal Ann MD Primary Care Provider [phone] Encounter Details Date Type Department Care Team (Late st Contact Info) Description 10/27/2014 Abstract [facility] AT [address] [address] Gordon Barbour MD Social History [...] 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 Not on file Not on le documented as of this encounter Plan of Treatment Not on file documented as of this encounter Visit Diagnoses Not on filedocumented in this encounter Care Teams Ramp And Cargo Supervisor Relationship Specialty Start Date End Date Inder Redman MD [address] [place] [phone] PCP - General FAMILY PRACTICE 01/30/16 07/18/20 Nirmal Ann MD [address] [place] [phone] PCP - General FAMILY PRACTICE 07/19/20 Angelo Willson MD [address] [place] [phone] CARDIOVASCULAR DISEASE 01/30/16 06/23/18 Gladys Stoner MD [address] [place], [place] [phone] [employer] Adviser CARDIOVASCULAR DISEASE 06/24/18 Chun Orantes MD [address] [place] [address] [employer] Adviser CARDIOVASCULAR DISEASE 12/03/18 documented as of this encounter
--- OUTSIDE RECORDS SUMMARY | 2024-06-22 18:11 | XMS_ITS | Encounter Summary ---
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
--- OUTSIDE RECORDS SUMMARY | 2024-06-22 18:11 | XMS_ITS | Clinical Summary ---
Author Organization [facility] Address [address] [place] [phone] Care Team Providers Care Meat Grading Machine Operator Name Role Phone Nirmal Ann MD Primary Care Provider Allergies Active Allergy Reactions Criticality Noted Date Comments Erythromycin Iodine Penicillins Shellfish Containing Products Qqhktlg-Fez-Yxg Reductase Inhibitors Sulfa (Sulfonamide Antibiotics) Medications albuterol HFA (PROVENTIL HFA,VENTOLIN HFA,PROAIR HFA) 90 mcg/actuation inhaler ProAir HFA (albuterol sulfate) HFA aerosol inhaler 90 mcg/actuation; take 2 puff by mouth as directed; 0; -Aug-2014; Active 5 Active aspirin 325 mg tablet Take 1 tablet by mouth daily 5 Active C,E,zinc,copper 62-ucpvp5w-wgn 250-5-1 mg capsule Active carboxymethylcel lulose (REFRESH [...] 01/03/2022 Assessment & Plan (01/03/2022 12:54 PM PULP SCREEN OPERATOR): I talked with her son about this. 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 I think she needs to see an solar system installer for further management of this. It is [...] 01/03/2022 Assessment & Plan (01/03/2022 12:55 PM PULP SCREEN OPERATOR): Her hearing loss is relatively mild and mostly sensorineural. She should continue with her current hearing aids. Benign paroxysmal positional vertigo 10/05/2016 Excessive cerumen in ear canal 10/05/2016 Surgical History Surgery Date Site/Laterality Comments OR APPENDECTOMY Appendectomy - (Added by TW Conv) OR BIOPSY BREAST OPEN INCISIONAL Biopsy Breast Open - (Added by TW Conv) OR LIG/TRNSXJ FLP TUBE ABDL/ VAG APPR UNI/BI Tubal Ligation - (Added by TW Conv) OR COLONOSCOPY FLX DX W/TOYA J SPEC WHEN PFRMD Colonoscopy (Fiberoptic) - (Added by TW Conv) OR EXC CYST/ABERRANT BREAST TISSUE OPEN 1/> LESION Breast Surgery Lumpectomy - (Added by TW Conv) OR TRABECULOPLASTY BY LASER SURGERY Anterior Chamber Laser [...] CDT Gender Identity Female 01/14/2022 6:11 AM PULP SCREEN OPERATOR Sexual Orientation Straight 01/14/2022 6: 11 AM PULP SCREEN OPERATOR Obstetrics History Last Filed Vital Signs Vital Sign Reading Time Taken Comments Blood Pressure 149/81 10/05/2016 11:00 AM CDT Pulse 79 10/05/2016 11:00 AM CDT Temperature - - Respiratory Rate 18 01/02/2022 10:45 AM PULP SCREEN OPERATOR Oxygen Saturation - - Inhaled Oxygen Concentration - - Weight 63.5 kg (140 lb) 01/02/2022 10:45 AM PULP SCREEN OPERATOR Height 160 cm (5' 3 ) 01/02/2022 10:45 AM PULP SCREEN OPERATOR Body Mass Index 24.8 01/02/2022 10:45 AM PULP SCREEN OPERATOR Plan of Treatment Health Maintenance Due Date Last Done Comments Depression Screening 1942 Fall Risk Assessment 1942 Osteoporosis Screening-Bone Density Scan 1942 DTaP/Tdap/Td Vaccine (1 - Tdap) 1953 Hepatitis B Screening 1960 Well Visit 65+ 08/19/2007 Influenza Vaccine (Season Ended) 2024 11/11/2020, 11/17/2019, 11/27/2018, Additional history exists Pneumococcal vaccine 65+ Completed 08/19/2013, 02/27 Zoster Vaccine Completed 11/02/2018, 08/17/2018 Care Teams Meat Grading Machine Operator Relationship Specialty Start Date End Date Nirmal Ann MD PCP - General Family Medicine 12/25/21
--- OUTSIDE RECORDS SUMMARY | 2024-06-22 18:11 | XMS_ITS | Clinical Summary ---
Author Organization [facility] Address [address] [place] [address] Care Team Providers Care Weapons Specialist Name Role Phone Inder Redman MD Primary Care Provider [phone] Source Comments [facility],non-owned Affiliates and Associated Physician Practices is amultiple site organization consisting of ambulatory clinics and hospital sitesin [place], [place], [place] and [place]. This disclosure is being madepursuant to the Care Everywhere program and may not contain all information available regarding this patient. 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
--- OUTSIDE RECORDS SUMMARY | 2024-06-22 18:11 | XMS_ITS | Encounter Summary ---
Author Organization [facility] Address [address] [place] [address] Care Team Providers Care Cable Machine Operator Name Role Phone Inder Redman MD Primary Care Provider [phone] Gladys Stoner MD Unavailable [phone] Chun Orantes MD Unavailable [phone] Nirmal Ann MD Primary Care Provider [phone] Encounter Details Date Type Department Care Team (Late st Contact Info) Description 08/02/2018 Abstract [facility] [address] [place] [address] , Generic Conversion, Social History [...] on filedocumented in this encounter Care Teams Cable Machine Operator Relationship Specialty Start Date End Date Inder Redman MD [address] [place] [phone] PCP - General FAMILY PRACTICE 01/30/16 07/18/20 Nirmal Ann MD [address] [place] [phone] PCP - General FAMILY PRACTICE 07/19/20 Gladys Stoner MD [address] [place] [phone] [place] Radiocommunications Technician CARDIOVASCULAR DISEASE 06/24/18 Chun Orantes MD [address] [place] [phone] [place] Radiocommunications Technician CARDIOVASCULAR DISEASE 12/03/18 documented as of this encounter
== END 2024-06-22 17:55 | disposition home or self-care (01) ==
PROVIDERS: Emergency Provider Family Medicine; PCP Family Medicine
DX: H53.16 Psychophysical visual disturbances (principal); F17.210 Nicotine dependence, cigarettes, uncomplicated
CPT/HCPCS: 70450; 99284; A9270

== ENCOUNTER 2024-07-09 08:32 | Outpatient (CLI) | payer MEDICARE, SELFPAY ==
--- OUTSIDE RECORDS SUMMARY | 2024-07-09 08:37 | XMS_ITS | Encounter Summary ---
Author Organization [facility] Address [address] [place] [address] Care Team Providers Care Wrapper Layer Name Role Phone Inder Redman MD Primary Care Provider [phone] Angelo Willson MD Unavailable Unavailab Gladys Harding MD Unavailable [phone] Chun Orantes MD Unavailable [phone] Nirmal Ann MD Primary Care Provider [phone] Encounter Details Date Type Department Care Team (Late st Contact Info) Description 01/30/2016 Abstract 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 Not on file Not on fi le documented as of this encounter Plan of Treatment Not on file documented as of this encounter Visit Diagnoses Not on filedocumented in this encounter Care Teams Wrapper Layer Relationship Specialty Start Date End Date Inder Redman MD [address] [place] [phone] PCP - General FAMILY PRACTICE 01/30/16 07/18/20 Nirmal Ann MD [address] [place] [phone] PCP - General FAMILY PRACTICE 07/19/20 Angelo Willson MD [address] [place] [phone] CARDIOVASCULAR DISEASE 01/30/16 06/23/18 Gladys Stoner MD [address] [place], [place] [phone] [place] Superintendent Seed Mill CARDIOVASCULAR DISEASE 06/24/18 Chun Orantes MD [address] [place] [address] [place] Superintendent [employer] Mill CARDIOVASCULAR DISEASE 12/03/18 documented as of this encounter
--- OUTSIDE RECORDS SUMMARY | 2024-07-09 08:37 | XMS_ITS | Clinical Summary ---
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 Not on file Not on fi le Last Filed Vital Signs Vital Sign Reading Time Taken Comments Blood Pressure 139/45 01/29/2023 1:48 PM POT TENDER Pulse 73 01/29/2023 1:48 PM POT TENDER Temperature 36.1 C (97 F) 01/29/2023 1:48 PM POT TENDER Respiratory Rate 18 01/29/2023 1:48 PM POT TENDER Oxygen Saturation 97% 01/29/2023 1:48 PM POT TENDER Inhaled Oxygen Concentration - - Weight 52.2 kg (115 lb) 01/27/2023 2:35 PM POT TENDER Height 157.5 cm (5' 2 ) 01/27/2023 2:35 PM POT TENDER Body Mass Index 21.03 01/27/2023 2:35 PM POT TENDER Plan of Treatment Health Maintenance Due Date [...] Recently Relevant to [place] [address] Advance Directives Documents on File Type Date Recorded Patient Facilities Project Manager Expl anation Advance Directives and Livin g Will 01/30/2023 8:03 AM * Full Code (Latest Code Status on File) Date Activated Date Inactivated Comments 01/27/2023 2:42 PM 01/29/2023 5:38 PM Care Teams Technical Support Associate Relationship Specialty Start Date End Date Nirmal Hdz MD [address] [place] [phone] PCP - General FAMILY PRACTICE 07/19/20 Gladys Stoner MD [place] Physical Education Specialist CARDIOVASCULAR DISEASE 06/24/18 Chun Orantes MD [address] [place] [address] [place] Physical Education Specialist CARDIOVASCULAR DISEASE 12/03/18
--- OUTSIDE RECORDS SUMMARY | 2024-07-09 08:37 | XMS_ITS | Encounter Summary ---
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
--- OUTSIDE RECORDS SUMMARY | 2024-07-09 08:38 | XMS_ITS | Encounter Summary ---
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 Not on file Not on le documented as of this encounter Plan of Treatment Not on file documented as of this encounter Visit Diagnoses Not on filedocumented in this encounter Care Teams Operation Supervisor Relationship Specialty Start Date End Date Inder Redman MD [address] [place] [phone] PCP - General FAMILY PRACTICE 01/30/16 07/18/20 Nirmal Ann MD [address] [place] [phone] PCP - General FAMILY PRACTICE 07/19/20 Gladys Stoner MD [address] [place] [phone] [place] Swing Tender CARDIOVASCULAR DISEASE 06/24/18 Chun Orantes MD [address] [place] [phone] [place] Swing Tender CARDIOVASCULAR DISEASE 12/03/18 documented as of this encounter
--- OUTSIDE RECORDS SUMMARY | 2024-07-09 08:38 | XMS_ITS | Referral Summary ---
Author Organization [facility] Address [address] [place] [phone] Care Team Providers Care Can Tester Name Role Phone Nirmal Ann MD Primary Care Provider Allergies Active Allergy Reactions Criticality Noted Date Comments Erythromycin Iodine Penicillins Shellfish Containing Products Zgenvak-Eib-Byh Reductase Inhibitors Sulfa (Sulfonamide Antibiotics) Medications albuterol HFA (PROVENTIL HFA,VENTOLIN HFA,PROAIR HFA) 90 mcg/actuation inhaler ProAir HFA (albuterol sulfate) HFA aerosol inhaler 90 mcg/actuation; take 2 puff by mouth as directed; 0; -Aug-2014; Active 5 Active aspirin 325 mg tablet Take 1 tablet by mouth daily 5 Active C,E,zinc,copper 63-ffimv4k-msu 250-5-1 mg capsule Active carboxymethylcel lulose (REFRESH [...] 01/03/2022 Assessment & Plan (01/03/2022 12:54 PM SECURITY SHIFT MANAGER): I talked with her son about this. 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 I think she needs to see an clinical nurse occupational medicine for further management of this. It is [...] 01/03/2022 Assessment & Plan (01/03/2022 12:55 PM SECURITY SHIFT MANAGER): Her hearing loss is relatively mild and [...] CDT Gender Identity Female 01/14/2022 6:11 AM SECURITY SHIFT MANAGER Sexual Orientation Straight 01/14/2022 6: 11 AM SECURITY SHIFT MANAGER Last Filed Vital Signs Vital Sign Reading Time Taken Comments Blood Pressure 149/81 10/05/2016 11:00 AM CDT Pulse 79 10/05/2016 11:00 AM CDT Temperature - - Respiratory Rate 18 01/02/2022 10:45 AM SECURITY SHIFT MANAGER Oxygen Saturation - - Inhaled Oxygen Concentration - - Weight 63.5 kg (140 lb) 01/02/2022 10:45 AM SECURITY SHIFT MANAGER Height 160 cm (5' 3 ) 01/02/2022 10:45 AM SECURITY SHIFT MANAGER Body Mass Index 24.8 01/02/2022 10:45 AM SECURITY SHIFT MANAGER Plan of Treatment Not on file Care Teams Can Tester Relationship Specialty Start Date End Date Nirmal Ann MD PCP - General Family Medicine 12/25/21
--- OUTSIDE RECORDS SUMMARY | 2024-07-09 08:38 | XMS_ITS | Clinical Summary ---
Author Organization [facility] Address [address] [facility] [place] [address] Care Team Providers Care Diesel Technician Mechanic Name Role Phone Inder Redman MD Primary Care Provider [phone] Source Comments [facility],non-owned Affiliates and Associated Physician Practices is amultiple site organization consisting of ambulatory clinics and hospital sitesin [place], [place], [place]. This disclosure is being madepursuant to the Care Everywhere program and may not contain all information available regarding this patient. Last updated 17.[facility] Allergies Active Allergy Reactions Criticality Noted Date [...] reported dizzyness; resoled after stopping timolol, Sandeep Reyse MD, 09/23/2013, 2:08 PM, Active Problems Problem [...] on file Legal Sex Female 5:44 PM COMPUTATIONAL BIOLOGIST Gender Identity Not on file Sexual Orientation [...] age to complete this topic Care Teams Diesel Technician Mechanic Relationship Specialty Start Date End Date Inder Redman MD [address] [place] [phone] PCP - General 12/05/07
--- OUTSIDE RECORDS SUMMARY | 2024-07-09 08:38 | XMS_ITS | Clinical Summary ---
Author Organization [facility] Address [address] [place] [phone] Care Team Providers Care Lump Room Supervisor Name Role Phone Nirmal Ann MD Primary Care Provider Allergies Active Allergy Reactions Criticality Noted Date Comments Erythromycin Iodine Penicillins Shellfish Containing Products Zsdhmix-Rbo-Mjg Reductase Inhibitors Sulfa (Sulfonamide Antibiotics) Medications albuterol HFA (PROVENTIL HFA,VENTOLIN HFA,PROAIR HFA) 90 mcg/actuation inhaler ProAir HFA (albuterol sulfate) HFA aerosol inhaler 90 mcg/actuation; take 2 puff by mouth as directed; 0; -Aug-2014; Active 5 Active aspirin 325 mg tablet Take 1 tablet by mouth daily 5 Active C,E,zinc,copper 29-yemqu8m-muj 250-5-1 mg capsule Active carboxymethylcel lulose (REFRESH [...] 01/03/2022 Assessment & Plan (01/03/2022 12:54 PM ACTIVITIES SPECIALIST): I talked with her son about this. 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 I think she needs to see an grass farmer for further management of this. It is [...] 01/03/2022 Assessment & Plan (01/03/2022 12:55 PM ACTIVITIES SPECIALIST): Her hearing loss is relatively mild and mostly sensorineural. She should continue with her current hearing aids. Benign paroxysmal positional vertigo 10/05/2016 Excessive cerumen in ear canal 10/05/2016 Surgical History Surgery Date Site/Laterality Comments ME APPENDECTOMY Appendectomy - (Added by TW Conv) ME BIOPSY BREAST OPEN INCISIONAL Biopsy Breast Open - (Added by TW Conv) ME LIG/TRNSXJ FLP TUBE ABDL/ VAG APPR UNI/BI Tubal Ligation - (Added by TW Conv) ME COLONOSCOPY FLX DX W/TOYA J SPEC WHEN PFRMD Colonoscopy (Fiberoptic) - (Added by TW Conv) ME EXC CYST/ABERRANT BREAST TISSUE OPEN 1/> LESION Breast Surgery Lumpectomy - (Added by TW Conv) ME TRABECULOPLASTY BY LASER SURGERY Anterior Chamber Laser [...] CDT Gender Identity Female 01/14/2022 6:11 AM ACTIVITIES SPECIALIST Sexual Orientation Straight 01/14/2022 6: 11 AM ACTIVITIES SPECIALIST Obstetrics History Last Filed Vital Signs Vital Sign Reading Time Taken Comments Blood Pressure 149/81 10/05/2016 11:00 AM CDT Pulse 79 10/05/2016 11:00 AM CDT Temperature - - Respiratory Rate 18 01/02/2022 10:45 AM ACTIVITIES SPECIALIST Oxygen Saturation - - Inhaled Oxygen Concentration - - Weight 63.5 kg (140 lb) 01/02/2022 10:45 AM ACTIVITIES SPECIALIST Height 160 cm (5' 3 ) 01/02/2022 10:45 AM ACTIVITIES SPECIALIST Body Mass Index 24.8 01/02/2022 10:45 AM ACTIVITIES SPECIALIST Plan of Treatment Health Maintenance Due Date Last Done Comments Depression Screening 1942 Fall Risk Assessment 1942 Osteoporosis Screening-Bone Density Scan 1942 DTaP/Tdap/Td Vaccine (1 - Tdap) 1953 Hepatitis B Screening 1960 Well Visit 65+ 08/19/2007 Influenza Vaccine (Season Ended) 2024 11/11/2020, 11/17/2019, 11/27/2018, Additional history exists Pneumococcal vaccine 65+ Completed 08/19/2013, 02/27 Zoster Vaccine Completed 11/02/2018, 08/17/2018 Care Teams Lump Room Supervisor Relationship Specialty Start Date End Date Nirmal Ann MD PCP - General Family Medicine 12/25/21
--- OUTSIDE RECORDS SUMMARY | 2024-07-09 08:38 | XMS_ITS | Encounter Summary ---
Author Organization [facility] Address [facility] [place] [address] Care Team Providers Care Beverage Distiller Name Role Phone Inder Redman MD Primary Care Provider [phone] Angelo Willson MD Unavailable Unavailab Gladys Harding MD Unavailable [phone] Chun Orantes MD Unavailable [phone] Nirmal Ann MD Primary Care Provider [phone] Encounter Details Date Type Department Care Team (Late st Contact Info) Description 10/27/2014 Abstract [facility] AT [address] [phone] Gordon Barbour MD Social History [...] on filedocumented in this encounter Care Teams Beverage Distiller Relationship Specialty Start Date End Date Inder Redman MD [address] [place] [phone] PCP - General FAMILY PRACTICE 01/30/16 07/18/20 Nirmal Ann MD [address] [place] [phone] PCP - General FAMILY PRACTICE 07/19/20 Angelo Willson MD [address] [place] [phone] CARDIOVASCULAR DISEASE 01/30/16 06/23/18 Gladys Stoner MD [address] [place], [place] [phone] [place] Director Of Income Tax CARDIOVASCULAR DISEASE 06/24/18 Chun Orantes MD [address] [place] [address] [place] Director Of Income Tax CARDIOVASCULAR DISEASE 12/03/18 documented as of this encounter
[2024-07-09 08:55] LABS: Basophils Absolute Auto 0.04 K/mm3 (0.00-0.10); Eosinophils Absolute Auto 0.13 K/mm3 (0.02-0.50); Eosinophils Percent Auto 3.2 % (1.0-6.0); Hematocrit 38.8 % (35.0-42.0); Hemoglobin 12.2 g/dL (11.7-13.8); Immature Granulocyte Absolute 0.01 K/mm3 (0.00-0.00); Immature Granulocyte Percent A 0.2 % (0.0-0.0); Lymphocytes Absolute Auto 1.26 K/mm3 (1.10-4.50); Lymphocytes Percent Auto 31.2 % (18.0-42.0); Mean Corpuscular HGB Conc 31.4 g/dL (32-36); Mean Corpuscular Volume 95.6 fL (78.0-102.0); Mean Platelet Volume 9.2 fl (9.2-11.8); Monocytes Absolute Auto 0.36 K/mm3 (0.10-0.90); Monocytes Percent Auto 8.9 % (2.0-11.0); Neutrophils Absolute Auto 2.24 K/mm3 (1.70-7.20); Neutrophils Percent Auto 55.5 % (50.0-70.0); Platelet Count Result 208 K/mm3 (150-420); Red Blood Count 4.06 M/mm3 (4.20-5.40); Red Cell Distribution Width 12.3 % (11.6-14.4)
[2024-07-09 09:04] LABS: Hemoglobin A1C 5.3 % (<5.7)
[2024-07-09 09:29] LABS: Alanine Aminotransferase 12 U/L (6-35); Albumin Level 3.9 g/dL (3.5-5.1); Alkaline Phosphatase 80 U/L (38-126); Anion Gap 4 mmol/L (4-12); Aspartate Amino Transferase 21 U/L (14-36); Bilirubin,Total 0.4 mg/dL (0.2-1.3); Blood Urea Nitrogen 12 mg/dL (7-17); Calcium 9.3 mg/dL (8.4-10.2); Carbon Dioxide 30 mmol/L (22-30); Chloride 100 mmol/L (98-107); Estimated Glomerular Filt Rate > 60; Glucose 98 mg/dL (65-110); Osmolality Calculated 277 mOsm/kg (285-295); Potassium 4.3 mmol/L (3.4-5.0); Sodium 134 mmol/L (137-145); Total Protein 6.2 g/dL (6.3-8.2)
== END 2024-07-09 08:33 | disposition home or self-care (01) ==
LOC: CHSLAB 08:34
PROVIDERS: PCP Family Medicine; Visit Provider Family Medicine
DX: I10 Essential (primary) hypertension (principal); I69.30 Unspecified sequelae of cerebral infarction; J45.909 Unspecified asthma, uncomplicated; R79.0 Abnormal level of blood mineral
CPT/HCPCS: 36415; 80053; 83036; 85025

== ENCOUNTER 2024-07-14 12:35 | Outpatient (NON) | payer MEDICARE, SELFPAY ==
--- OUTSIDE RECORDS SUMMARY | 2024-07-14 12:39 | XMS_ITS | Encounter Summary ---
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 Not on file Not on file Not [...] on filedocumented in this encounter Care Teams Mixed Signal Design Engineer Relationship Specialty Start Date End Date Nirmal Ann MD [address] [place] [phone] PCP - General FAMILY PRACTICE 07/19/20 Gladys Stoner MD [place] Patient Centered Care Specialist CARDIOVASCULAR DISEASE 06/24/18 Chun Orantes MD [address] [place] [address] [place] Patient Centered Care Specialist CARDIOVASCULAR DISEASE 12/03/18 documented as of this encounter
--- OUTSIDE RECORDS SUMMARY | 2024-07-14 12:39 | XMS_ITS | Referral Summary ---
Author Organization [facility] Address [address] [place] [phone] Care Team Providers Care Unix Architect Name Role Phone Nirmal Ann MD Primary Care Provider Allergies Active Allergy Reactions Criticality Noted Date Comments Erythromycin Iodine Penicillins Shellfish Containing Products Yanps[place]-Yps-Thp Reductase Inhibitors Sulfa (Sulfonamide Antibiotics) Medications albuterol HFA (PROVENTIL HFA,VENTOLIN HFA,PROAIR HFA) 90 mcg/actuation inhaler ProAir HFA (albuterol sulfate) HFA aerosol inhaler 90 mcg/actuation; take 2 puff by mouth as directed; 0; -Aug-2014; Active 5 Active aspirin 325 mg tablet Take 1 tablet by mouth daily 5 Active C,E,zinc,copper 11-pcswg4u-ein 250-5-1 mg capsule Active carboxymethylcel lulose (REFRESH [...] 01/03/2022 Assessment & Plan (01/03/2022 12:54 PM VEGETABLE BUNCHER): I talked with her son about this. 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 I think she needs to see an fuel testing technician for further management of this. It is [...] 01/03/2022 Assessment & Plan (01/03/2022 12:55 PM VEGETABLE BUNCHER): Her hearing loss is relatively mild and [...] CDT Gender Identity Female 01/14/2022 6:11 AM VEGETABLE BUNCHER Sexual Orientation Straight 01/14/2022 6: 11 AM VEGETABLE BUNCHER Last Filed Vital Signs Vital Sign Reading Time Taken Comments Blood Pressure 149/81 10/05/2016 11:00 AM CDT Pulse 79 10/05/2016 11:00 AM CDT Temperature - - Respiratory Rate 18 01/02/2022 10:45 AM VEGETABLE BUNCHER Oxygen Saturation - - Inhaled Oxygen Concentration - - Weight 63.5 kg (140 lb) 01/02/2022 10:45 AM VEGETABLE BUNCHER Height 160 cm (5' 3 ) 01/02/2022 10:45 AM VEGETABLE BUNCHER Body Mass Index 24.8 01/02/2022 10:45 AM VEGETABLE BUNCHER Plan of Treatment Not on file Care Teams Unix Architect Relationship Specialty Start Date End Date Nirmal Ann MD PCP - General Family Medicine 12/25/21
--- OUTSIDE RECORDS SUMMARY | 2024-07-14 12:39 | XMS_ITS | Encounter Summary ---
Author Organization [facility] Address [facility] [place] [address] Care Team Providers Care Forest Resources Professor Name Role Phone Inder Redman MD Primary Care Provider [phone] Angelo Willson MD Unavailable Unavailab Gladys Harding MD Unavailable [phone] Chun Orantes MD Unavailable [phone] Nirmal Ann MD Primary Care Provider [phone] Encounter Details Date Type Department Care Team (Late st Contact Info) Description 10/27/2014 Abstract [facility] AT [address] [phone] Gordon Barbour MD Social History [...] 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 Not on file Not on le documented as of this encounter Plan of Treatment Not on file documented as of this encounter Visit Diagnoses Not on filedocumented in this encounter Care Teams Forest Resources Professor Relationship Specialty Start Date End Date Inder Redman MD [address] [place] [phone] PCP - General FAMILY PRACTICE 01/30/16 07/18/20 Nirmal Ann MD [address] [place] [phone] PCP - General FAMILY PRACTICE 07/19/20 Angelo Willson MD [address] [place] [phone] CARDIOVASCULAR DISEASE 01/30/16 06/23/18 Gladys Stoner MD [address] [place], [place] [phone] [place] Melting Operator CARDIOVASCULAR DISEASE 06/24/18 Chun Orantes MD [address] [place] [address] [place] Melting Operator CARDIOVASCULAR DISEASE 12/03/18 documented as of this encounter
--- OUTSIDE RECORDS SUMMARY | 2024-07-14 12:39 | XMS_ITS | Encounter Summary ---
Author Organization [facility] Address [address] [place] [address] Care Team Providers Care Ethanol Quality Leader Name Role Phone Inder Redman MD Primary Care Provider [phone] Angelo Willson MD Unavailable Unavailab Gladys Harding MD Unavailable [phone] Chun Orantes MD Unavailable [phone] Nirmal Ann MD Primary Care Provider [phone] Encounter Details Date Type Department Care Team (Late st Contact Info) Description 01/30/2016 [facility] [address] [place] [address] Angelo Willson MD Social History Tobacco Use [...] 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 Not on file Not on fi le documented as of this encounter Plan of Treatment Not on file documented as of this encounter Visit Diagnoses Not on filedocumented in this encounter Care Teams Ethanol Quality Leader Relationship Specialty Start Date End Date Inder Redman MD [address] [place] [phone] PCP - General FAMILY PRACTICE 01/30/16 07/18/20 Nirmal Ann MD [address] [place] [phone] PCP - General FAMILY PRACTICE 07/19/20 Angelo Willson MD [address] [place] [phone] CARDIOVASCULAR DISEASE 01/30/16 06/23/18 Gladys Stoner MD [address] [place], [place] [phone] [place] Soil Science Professor CARDIOVASCULAR DISEASE 06/24/18 Chun Orantes MD [address] [place] [phone] [place] Soil Science Professor CARDIOVASCULAR DISEASE 12/03/18 documented as of this encounter
--- OUTSIDE RECORDS SUMMARY | 2024-07-14 12:39 | XMS_ITS | Clinical Summary ---
Author Organization [facility] Address [address] [place] [address] Care Team Providers Care Art Gilder Name Role Phone Gladys Stoner MD Unavailable [phone] Chun Orantes MD Unavailable [phone] Nirmal Hdz MD Primary Care Provider Allergies [...] Palpitations 07/14/2019 Osteoporosis 10/16/2018 Syringomyelia ([facility]) 06/12/2018 Carotid stenosis, asymptomatic, bilateral [...] drink = 0.6 oz pur e alcohol) [facility] Utilities Answer Date Recorded In the past 12 months has [facility] [employer], oil, or water [employer] threatened to shut off services in your [...] place to sleep or slept in a residential (including now)? 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 Not on file Not on fi le Last Filed Vital Signs Vital Sign Reading Time Taken Comments Blood Pressure 139/45 01/29/2023 1:48 PM DATA CONVERSION DEVELOPER Pulse 73 01/29/2023 1:48 PM DATA CONVERSION DEVELOPER Temperature 36.1 C (97 F) 01/29/2023 1:48 PM DATA CONVERSION DEVELOPER Respiratory Rate 18 01/29/2023 1:48 PM DATA CONVERSION DEVELOPER Oxygen Saturation 97% 01/29/2023 1:48 PM DATA CONVERSION DEVELOPER Inhaled Oxygen Concentration - - Weight 52.2 kg (115 lb) 01/27/2023 2:35 PM DATA CONVERSION DEVELOPER Height 157.5 cm (5' 2 ) 01/27/2023 2:35 PM DATA CONVERSION DEVELOPER Body Mass Index 21.03 01/27/2023 2:35 PM DATA CONVERSION DEVELOPER Plan of Treatment Health Maintenance Due Date [...] Recently Relevant to Health Maintenance [place] [address] Advance Directives Documents on File Type Date Recorded Patient Ob Nurse Expl anation Advance Directives and Livin g Will 01/30/2023 8:03 AM * Full Code (Latest Code Status on File) Date Activated Date Inactivated Comments 01/27/2023 2:42 PM 01/29/2023 5:38 PM Care Teams Art Gilder Relationship Specialty Start Date End Date Nirmal Hzd MD [address] [place] [phone] PCP - General FAMILY PRACTICE 07/19/20 Gladys Stoner MD White Arterial Embalmer CARDIOVASCULAR DISEASE 06/24/18 Chun Orantes MD [address] [place] [address] White Arterial Embalmer CARDIOVASCULAR DISEASE 12/03/18
--- OUTSIDE RECORDS SUMMARY | 2024-07-14 12:39 | XMS_ITS | Encounter Summary ---
Author Organization [facility] Address [address] [place] [address] Care Team Providers Care Radio Mechanic Name Role Phone Inder Redman MD Primary Care Provider [phone] Gladys Stoner MD Unavailable [phone] Chun Orantes MD Unavailable [phone] Nirmal Ann MD Primary Care Provider Encounter Details Date Type Department Care Team (Late st Contact Info) Description 08/02/2018 Abstract SFL CONVERSION [address] [place] [address] , Generic Conversion, Social History [...] on filedocumented in this encounter Care Teams Radio Mechanic Relationship Specialty Start Date End Date Inder Redman MD [address] [place] [phone] PCP - General FAMILY PRACTICE 01/30/16 07/18/20 Nirmal Ann MD [address] [place] [phone] PCP - General FAMILY PRACTICE 07/19/20 Gladys Stoner MD [address] [place] [phone] [place] Medical Doctor Nuclear Medicine CARDIOVASCULAR DISEASE 06/24/18 Chun Orantes MD [address] [place] [phone] [place] Medical Doctor Nuclear Medicine CARDIOVASCULAR DISEASE 12/03/18 documented as of this encounter
--- OUTSIDE RECORDS SUMMARY | 2024-07-14 12:39 | XMS_ITS | Clinical Summary ---
Author Organization [facility] Address [address] [place] [address] Care Team Providers Care Dietetic Technician Name Role Phone Inder Redman MD Primary Care Provider Source Comments [facility],non-owned Affiliates and Associated Physician Practices is amultiple site organization consisting of ambulatory clinics and hospital sitesin [place], [place], [place] and [place]. This disclosure is being madepursuant to the Care Everywhere program and may not contain all information available regarding this patient. Last updated 17.[facility] Allergies Active Allergy Reactions Criticality Noted Date [...] on file Legal Sex Female 5:44 PM POT PRESS OPERATOR Gender Identity Not on file Sexual Orientation [...] age to complete this topic Care Teams Dietetic Technician Relationship Specialty Start Date End Date Inder Redman MD [address] [place] [phone] PCP - General 12/05/07
--- OUTSIDE RECORDS SUMMARY | 2024-07-14 12:39 | XMS_ITS | Clinical Summary ---
Author Organization [facility] Address [address] [place] [phone] Care Team Providers Care Granulizing Machine Operator Name Role Phone Nirmal Ann MD Primary Care Provider Allergies Active Allergy Reactions Criticality Noted Date Comments Erythromycin Iodine Penicillins Shellfish Containing Products Vcnvpea-Pby-Ygu Reductase Inhibitors Sulfa (Sulfonamide Antibiotics) Medications albuterol HFA (PROVENTIL HFA,VENTOLIN HFA,PROAIR HFA) 90 mcg/actuation inhaler ProAir HFA (albuterol sulfate) HFA aerosol inhaler 90 mcg/actuation; take 2 puff by mouth as directed; 0; -Aug-2014; Active 5 Active aspirin 325 mg tablet Take 1 tablet by mouth daily 5 Active C,E,zinc,copper [id number] 250-5-1 mg capsule Active carboxymethylcel lulose (REFRESH [...] 01/03/2022 Assessment & Plan (01/03/2022 12:54 PM TELEPHONIC NURSE CASE MANAGER): I talked with her son about this. 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 I think she needs to see an gas line installer for further management of this. It [...] 01/03/2022 Assessment & Plan (01/03/2022 12:55 PM TELEPHONIC NURSE CASE MANAGER): Her hearing loss is relatively mild and mostly sensorineural. She should continue with her current hearing aids. Benign paroxysmal positional vertigo 10/05/2016 Excessive cerumen in ear canal 10/05/2016 Surgical History Surgery Date Site/Laterality Comments [facility] APPENDECTOMY Appendectomy - (Added by TW Conv) VA BIOPSY BREAST OPEN INCISIONAL Biopsy Breast Open - (Added by TW Conv) [facility] LIG/TRNSXJ FLP TUBE ABDL/ VAG APPR UNI/BI Tubal Ligation - (Added by TW Conv) VA COLONOSCOPY FLX DX W/TOYA J SPEC WHEN PFRMD Colonoscopy (Fiberoptic) - (Added by TW Conv) VA EXC CYST/ABERRANT BREAST TISSUE OPEN 1/> LESION Breast Surgery Lumpectomy - (Added by TW Conv) VA TRABECULOPLASTY BY LASER SURGERY Anterior Chamber Laser [...] CDT Gender Identity Female 01/14/2022 6:11 AM TELEPHONIC NURSE CASE MANAGER Sexual Orientation Straight 01/14/2022 6: 11 AM TELEPHONIC NURSE CASE MANAGER Obstetrics History Last Filed Vital Signs Vital Sign Reading Time Taken Comments Blood Pressure 149/81 10/05/2016 11:00 AM CDT Pulse 79 10/05/2016 11:00 AM CDT Temperature - - Respiratory Rate 18 01/02/2022 10:45 AM TELEPHONIC NURSE CASE MANAGER Oxygen Saturation - - Inhaled Oxygen Concentration - - Weight 63.5 kg (140 lb) 01/02/2022 10:45 AM TELEPHONIC NURSE CASE MANAGER Height 160 cm (5' 3 ) 01/02/2022 10:45 AM TELEPHONIC NURSE CASE MANAGER Body Mass Index 24.8 01/02/2022 10:45 AM TELEPHONIC NURSE CASE MANAGER Plan of Treatment Health Maintenance Due Date Last Done Comments Depression Screening 1942 Fall Risk Assessment 1942 Osteoporosis Screening-Bone Density Scan 1942 DTaP/Tdap/Td Vaccine (1 - Tdap) 1953 Hepatitis B Screening 1960 Well Visit 65+ 08/19/2007 Influenza Vaccine (Season Ended) 2024 11/11/2020, 11/17/2019, 11/27/2018, Additional history exists Pneumococcal vaccine 65+ Completed 08/19/2013, 02/27 Zoster Vaccine Completed 11/02/2018, 08/17/2018 Care Teams Granulizing Machine Operator Relationship Specialty Start Date End Date Nirmal Ann MD PCP - General Family Medicine 12/25/21
[2024-07-14 12:42] LABS: Add Urine Microscopic? YES; Appearance Urine Clear (Clear); Bilirubin Urine Negative (Negative); Blood Urine Trace-intact (Negative); Color Urine Light Yellow (Yellow); Glucose Urine UA Negative (Negative); Ketones Urine Negative (Negative); Leukocyte Esterase Ur 3+ LEU/UL (Negative); Nitrate Urine Negative (Negative); Protein Urine Negative (Negative); Urobilinogen Urine 0.2 mg/dL (0.2-1.0)
[2024-07-14 13:08] LABS: Bacteria Urine 1+ /hpf; RBC Urine 0-2 /hpf (0-2); Squamous Epithelial Cell Urine Rare /hpf (Few); WBC Urine 21-30 /hpf (0-3)
== END 2024-07-14 12:36 | disposition home or self-care (01) ==
PROVIDERS: Visit Provider Family Medicine
DX: R30.0 Dysuria (principal)
CPT/HCPCS: 81001; 87077; 87086; 87088; 87186

== ENCOUNTER 2024-09-15 21:45 | Outpatient (NON) | payer OTHER, SELFPAY ==
--- OUTSIDE RECORDS SUMMARY | 2024-09-15 21:51 | XMS_ITS | Clinical Summary ---
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 [employer], oil, or water [employer] threatened to shut off services in your [...] place to sleep or slept in a custodial (including now)? 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 Not on file Not on fi le Last Filed Vital Signs Vital Sign Reading Time Taken Comments Blood Pressure 139/45 01/29/2023 1:48 PM PASSENGER SERVICE SUPERVISOR Pulse 73 01/29/2023 1:48 PM PASSENGER SERVICE SUPERVISOR Temperature 36.1 C (97 F) 01/29/2023 1:48 PM PASSENGER SERVICE SUPERVISOR Respiratory Rate 18 01/29/2023 1:48 PM PASSENGER SERVICE SUPERVISOR Oxygen Saturation 97% 01/29/2023 1:48 PM PASSENGER SERVICE SUPERVISOR Inhaled Oxygen Concentration - - Weight 52.2 kg (115 lb) 01/27/2023 2:35 PM PASSENGER SERVICE SUPERVISOR Height 157.5 cm (5' 2) 01/27/2023 2:35 PM PASSENGER SERVICE SUPERVISOR Body Mass Index 21.03 01/27/2023 2:35 PM PASSENGER SERVICE SUPERVISOR Plan of Treatment Health Maintenance Due Date [...] Recently Relevant to Health [place] [address] Advance Directives Documents on File Type Date Recorded Patient Aerial Survey Technician Expl anation Advance Directives and Livin g Will 01/30/2023 8:03 AM * Full Code (Latest Code Status on File) Date Activated Date Inactivated Comments 01/27/2023 2:42 PM 01/29/2023 5:38 PM Care Teams Meat Pumper Relationship Specialty Start Date End Date Nirmal Hdz MD [address] [place] [phone] PCP - General FAMILY PRACTICE 07/19/20 Gladys Stoner MD [place] Raker Buffing Wheel CARDIOVASCULAR DISEASE 06/24/18 Chun Orantes MD [address] [place] [address] [place] Raker Buffing Wheel CARDIOVASCULAR DISEASE 12/03/18
--- OUTSIDE RECORDS SUMMARY | 2024-09-15 21:51 | XMS_ITS | Encounter Summary ---
Author Organization 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
--- OUTSIDE RECORDS SUMMARY | 2024-09-15 21:51 | XMS_ITS | Patient Health Record ---
Author Organization [facility] Address [address] [place], [place] [address] Care Team Providers Care Belt Machine Operator Name Role Phone Nirmal Ann Unavailable Unavailable Reason For Referral No Information Plan Of Treatment No Information Insurance Providers Payer Name Payer Address Payer Phone Subscriber Number Group Number Insured Name Patient Relationship to Insured Coverage Start Date Coverage End Date [facility] [address] [address] [place] [id number] BERNARD HERNANDEZ Sponsored Dependent
--- OUTSIDE RECORDS SUMMARY | 2024-09-15 21:52 | XMS_ITS | Encounter Summary ---
Author Organization [facility] Address [facility] [place] [address] Care Team Providers Care Right Of Way Manager Name Role Phone Inder Redman MD Primary Care Provider [phone] Angelo Willson MD Unavailable Unavailab Gladys Harding MD Unavailable [phone] Chun Orantes MD Unavailable [phone] Nirmal Ann MD Primary Care Provider [phone] Encounter Details Date Type Department Care Team (Late st Contact Info) Description 10/27/2014 Abstract [facility] AT [address] [phone] Gordon Barbour MD Social History [...] on filedocumented in this encounter Care Teams Right Of Way Manager Relationship Specialty Start Date End Date Inder Redman MD [address] [place] [phone] PCP - General FAMILY PRACTICE 01/30/16 07/18/20 Nirmal Ann MD [address] [place], [place] [phone] PCP - General FAMILY PRACTICE 07/19/20 Angelo Willson MD [address] [place] [phone] CARDIOVASCULAR DISEASE 01/30/16 06/23/18 Gladys Stoner MD [address] [place], [place] [phone] [place] Event Marketing Representative CARDIOVASCULAR DISEASE 06/24/18 Chun Orantes MD [address] [place] [address] [place] Event Marketing Representative CARDIOVASCULAR DISEASE 12/03/18 documented as of this encounter
--- OUTSIDE RECORDS SUMMARY | 2024-09-15 21:52 | XMS_ITS | Encounter Summary ---
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 Not on file Not on le documented as of this encounter Plan of Treatment Not on file documented as of this encounter Visit Diagnoses Not on filedocumented in this encounter Care Teams Kier Hand Relationship Specialty Start Date End Date Inder Redman MD [address] [place] [phone] PCP - General FAMILY PRACTICE 01/30/16 07/18/20 Nirmal Ann MD [address] [place] [phone] PCP - General FAMILY PRACTICE 07/19/20 Gladys Stoner MD [address] [place] [phone] [place] Technical Spec CARDIOVASCULAR DISEASE 06/24/18 Chun Orantes MD [address] [place] [address] [place] Technical Spec CARDIOVASCULAR DISEASE 12/03/18 documented as of this encounter
--- OUTSIDE RECORDS SUMMARY | 2024-09-15 21:52 | XMS_ITS | Encounter Summary ---
Author Organization [facility] Address [address] [place] [address] Care Team Providers Care Airway Traffic Controller Name Role Phone Inder Redman MD Primary Care Provider [phone] Angelo Willson MD Unavailable Unavailab Gladys Harding MD Unavailable [phone] Chun Orantes MD Unavailable [phone] Nirmal Ann MD Primary Care Provider [phone] Encounter Details Date Type Department Care Team (Late st Contact Info) Description 01/30/[address] 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 Not on file Not on fi le documented as of this encounter Plan of Treatment Not on file documented as of this encounter Visit Diagnoses Not on filedocumented in this encounter Care Teams Airway Traffic Controller Relationship Specialty Start Date End Date Inder Redman MD [address] [place] [phone] PCP - General FAMILY PRACTICE 01/30/16 07/18/20 Nirmal Ann MD [address] [place], [place] [phone] PCP - General FAMILY PRACTICE 07/19/20 Angelo Willson MD [address] [place] [phone] CARDIOVASCULAR DISEASE 01/30/16 06/23/18 Gladys Stoner MD [address] [place], [place] [phone] [place] Boomswing Operator CARDIOVASCULAR DISEASE 06/24/18 Chun Orantes MD [address] [place] [address] [place] Boomswing Operator CARDIOVASCULAR DISEASE 12/03/18 documented as of this encounter
[2024-09-15 22:05] LABS: Add Urine Microscopic? YES; Glucose Urine UA Negative (Negative); Leukocyte Esterase Ur 3+ LEU/UL (Negative); Nitrate Urine Negative (Negative); Specific Grav Ur <= 1.005 (1.010-1.020)
[2024-09-15 22:06] LABS: Appearance Urine Cloudy (Clear)
== END 2024-09-15 21:46 | disposition home or self-care (01) ==
LOC: CHSLAB 21:50
DX: R35.0 Frequency of micturition (principal); R31.9 Hematuria, unspecified; R33.9 Retention of urine, unspecified
CPT/HCPCS: 81001; 87086

== ENCOUNTER 2024-10-14 10:02 | Outpatient (NON) | payer OTHER, SELFPAY ==
--- OUTSIDE RECORDS SUMMARY | 2024-10-14 10:23 | XMS_ITS | Patient Health Record ---
Author Organization [facility] Address [address] [facility] [address] [place], [place] [phone] Care Team Providers Care Study Specialist Name Role Phone Nirmal Ann Unavailable Unavailable Reason For Referral No Information Plan Of Treatment No Information Insurance Providers Payer Name Payer Address Payer Phone Subscriber Number Group Number Insured Name Patient Relationship to Insured Coverage Start Date Coverage End Date [facility] [address] [address] [place] [id number] BERNARD HERNANDEZ Sponsored Dependent
--- OUTSIDE RECORDS SUMMARY | 2024-10-14 10:23 | XMS_ITS | Encounter Summary ---
Author Organization [facility] Address [address] [place] [address] Care Team Providers Care Noise Abatement Engineer Name Role Phone Inder Redman MD Primary Care Provider [phone] Angelo Willson MD Unavailable Unavailab Gladys Harding MD Unavailable [phone] Chun Orantes MD Unavailable [phone] Nirmal Ann MD Primary Care Provider [phone] Encounter Details Date Type Department Care Team (Late st Contact Info) Description 01/30/2016 [facility] [address] [place] [address] Angelo Willson MD Social History Tobacco Use [...] 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 Not on file Not on fi le documented as of this encounter Plan of Treatment Not on file documented as of this encounter Visit Diagnoses Not on filedocumented in this encounter Care Teams Noise Abatement Engineer Relationship Specialty Start Date End Date Inder Redman MD [address] [place] [phone] PCP - General FAMILY PRACTICE 01/30/16 07/18/20 Nirmal Ann MD [address] [place], [place] [phone] PCP - General FAMILY PRACTICE 07/19/20 Angelo Willson MD [address] [place] [phone] CARDIOVASCULAR DISEASE 01/30/16 06/23/18 Gladys Stoner MD [address] [place], [place] [phone] [place] Sponge Hooking CARDIOVASCULAR DISEASE 06/24/18 Chun Orantes MD [address] [place] [address] [place] Fisher Sponge Hooking CARDIOVASCULAR DISEASE 12/03/18 documented as of this encounter
--- OUTSIDE RECORDS SUMMARY | 2024-10-14 10:23 | XMS_ITS | Clinical Summary ---
Author Organization [facility] Address [address] [place] [address] Care Team Providers Care Frame Bander Name Role Phone Gladys Stoner MD Unavailable [phone] Chun Orantes MD Unavailable [phone] Nirmal Hdz MD Primary Care Provider Allergies [...] Reyes MD, 09/23/2013, 2:08 PM, Yellow Dye #6 ([place] Yellow) Unknown 07/20/2011 Medications aspirin 325 MG tablet [...] egion 07/21/2021 Palpitations 07/14/2019 Osteoporosis 10/16/2018 Syringomyelia ([facility]) 06/12/2018 Carotid stenosis, asymptomatic, bilateral [...] drink = 0.6 oz pur e alcohol) [facility] Utilities Answer Date Recorded In the past 12 months has e [employer], oil, or water [employer] threatened to shut off services in your [...] place to sleep or slept in a skilled nursing (including now)? 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 file Not on file Not on fi le Last Filed Vital Signs Vital Sign Reading Time Taken Comments Blood Pressure 139/45 01/29/2023 1:48 PM BANKING PARALEGAL Pulse 73 01/29/2023 1:48 PM BANKING PARALEGAL Temperature 36.1 C (97 F) 01/29/2023 1:48 PM BANKING PARALEGAL Respiratory Rate 18 01/29/2023 1:48 PM BANKING PARALEGAL Oxygen Saturation 97% 01/29/2023 1:48 PM BANKING PARALEGAL Inhaled Oxygen Concentration - - Weight 52.2 kg (115 lb) 01/27/2023 2:35 PM BANKING PARALEGAL Height 157.5 cm (5' 2) 01/27/2023 2:35 PM BANKING PARALEGAL Body Mass Index 21.03 01/27/2023 2:35 PM BANKING PARALEGAL Plan of Treatment Health Maintenance Due Date [...] Documents on File Type Date Recorded Patient Mill Labor Supervisor Expl anation Advance Directives and Livin g Will 01/30/2023 8:03 AM * Full Code (Latest Code Status on File) Date Activated Date Inactivated Comments 01/27/2023 2:42 PM 01/29/2023 5:38 PM Care Teams Frame Bander Relationship Specialty Start Date End Date Nirmal Hdz MD [address] [place] [phone] PCP - General FAMILY PRACTICE 07/19/20 Gladys Stoner MD [place] Kraft Mill Operator CARDIOVASCULAR DISEASE 06/24/18 Chun Orantes MD [address] [place] [address] [place] Kraft Mill Operator CARDIOVASCULAR DISEASE 12/03/18
--- OUTSIDE RECORDS SUMMARY | 2024-10-14 10:23 | XMS_ITS | Encounter Summary ---
Author Organization [facility] Address [facility] [place] [address] Care Team Providers Care Camera Repairman Name Role Phone Inder Redman MD Primary Care Provider [phone] Angelo Willson MD Unavailable Unavailab Gladys Harding MD Unavailable [phone] Chun Orantes MD Unavailable [phone] Nirmal Ann MD Primary Care Provider [phone] Encounter Details Date Type Department Care Team (Late st Contact Info) Description 10/27/2014 Abstract [facility] AT [address] [phone] Gordon Barbour MD Social History [...] 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 Not on file Not on le documented as of this encounter Plan of Treatment Not on file documented as of this encounter Visit Diagnoses Not on filedocumented in this encounter Care Teams Camera Repairman Relationship Specialty Start Date End Date Inder Redman MD [address] [place] [phone] PCP - General FAMILY PRACTICE 01/30/16 07/18/20 Nirmal Ann MD [address] [place], [place] [phone] PCP - General FAMILY PRACTICE 07/19/20 Angelo Willson MD [address] [place] [phone] CARDIOVASCULAR DISEASE 01/30/16 06/23/18 Gladys Stoner MD [address] [place], [place] [phone] [place] Servicer CARDIOVASCULAR DISEASE 06/24/18 Chun Orantes MD [address] [place] [address] [place] Field Servicer CARDIOVASCULAR DISEASE 12/03/18 documented as of this encounter
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
--- OUTSIDE RECORDS SUMMARY | 2024-10-14 10:23 | XMS_ITS | Encounter Summary ---
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 Not on file Not on le documented as of this encounter Plan of Treatment Not on file documented as of this encounter Visit Diagnoses Not on filedocumented in this encounter Care Teams Collection Systems Modeler Relationship Specialty Start Date End Date Inder Redman MD [address] [place] [phone] PCP - General FAMILY PRACTICE 01/30/16 07/18/20 Nirmal Ann MD [address] [place] [phone] PCP - General FAMILY PRACTICE 07/19/20 Gladys Stoner MD [address] [place] [phone] [place] Field Specialist CARDIOVASCULAR DISEASE 06/24/18 Chun Orantes MD [address] [place] [address] [place] Field Specialist CARDIOVASCULAR DISEASE 12/03/18 documented as of this encounter
[2024-10-14 10:24] LABS: Hematocrit 39.2 % (35.0-42.0); Hemoglobin 12.1 g/dL (11.7-13.8); Mean Corpuscular HGB Conc 30.9 g/dL (32-36); Mean Corpuscular Hemoglobin 30.3 pg (27.0-31.0); Mean Corpuscular Volume 98.0 fL (78.0-102.0); Platelet Count Result 212 K/mm3 (150-420); Red Blood Count 4.00 M/mm3 (4.20-5.40); White Blood Count 4.3 K/mm3 (4.8-10.8)
[2024-10-14 10:41] LABS: Hemoglobin A1C 5.4 % (<5.7)
[2024-10-14 10:45] LABS: Alanine Aminotransferase 13 U/L (6-35); Albumin Level 4.3 g/dL (3.5-5.1); Alkaline Phosphatase 79 U/L (38-126); Anion Gap 7 mmol/L (4-12); Aspartate Amino Transferase 24 U/L (14-36); Bilirubin,Total 0.5 mg/dL (0.2-1.3); Blood Urea Nitrogen 11 mg/dL (7-17); Calcium 10.0 mg/dL (8.4-10.2); Carbon Dioxide 30 mmol/L (22-30); Chloride 102 mmol/L (98-107); Cholesterol 148 mg/dL (0-200); Estimated Glomerular Filt Rate > 60; Glucose 83 mg/dL (65-110); HDL Direct 53 mg/dL; Osmolality Calculated 286 mOsm/kg (285-295); Potassium 4.0 mmol/L (3.4-5.0); Sodium 139 mmol/L (137-145); Total Protein 6.7 g/dL (6.3-8.2); Triglycerides 97 mg/dL (<150)
[2024-10-14 11:23] LABS: Thyroid Stimulating Hormone 1.690 uIU/mL (0.465-4.680)
[2024-10-14 12:00] LABS: Vitamin B12 787.0 pg/mL (239-931)
== END 2024-10-14 10:03 | disposition home or self-care (01) ==
LOC: CHSLAB 10:05
DX: G95.0 Syringomyelia and syringobulbia (principal); E55.9 Vitamin D deficiency, unspecified; F33.9 Major depressive disorder, recurrent, unspecified; F41.9 Anxiety disorder, unspecified; R00.0 Tachycardia, unspecified; I10 Essential (primary) hypertension
CPT/HCPCS: 36415; 80053; 80061; 82607; 82746; 83036; 84436; 84443; 85027

== ENCOUNTER 2024-11-11 09:53 | Outpatient (NON) | payer OTHER, SELFPAY ==
--- OUTSIDE RECORDS SUMMARY | 2024-11-11 10:55 | XMS_ITS | Encounter Summary ---
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
--- OUTSIDE RECORDS SUMMARY | 2024-11-11 10:56 | XMS_ITS | Encounter Summary ---
Author Organization [facility] Address [facility] [place] [address] Care Team Providers Care Salesperson Pets And Pet Supplies Name Role Phone Inder Redman MD Primary Care Provider [phone] Angelo Willson MD Unavailable Unavailab Gladys Harding MD Unavailable [phone] Chun Orantes MD Unavailable [phone] Nirmal Ann MD Primary Care Provider [phone] Encounter Details Date Type Department Care Team (Late st Contact Info) Description 10/27/2014 Abstract [facility] AT [address] [phone] Gordon Barbour MD Social History [...] 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 Not on file Not on le documented as of this encounter Plan of Treatment Not on file documented as of this encounter Visit Diagnoses Not on filedocumented in this encounter Care Teams Salesperson Pets And Pet Supplies Relationship Specialty Start Date End Date Inder Redman MD [address] [place] [phone] PCP - General FAMILY PRACTICE 01/30/16 07/18/20 Nirmal Ann MD [address] [place], [place] [phone] PCP - General FAMILY PRACTICE 07/19/20 Angelo Willson MD [address] [place] [phone] CARDIOVASCULAR DISEASE 01/30/16 06/23/18 Gladys Stoner MD [address] [place], [place] [phone] [place] Flooring Sales Manager CARDIOVASCULAR DISEASE 06/24/18 Chun Orantes MD [address] [place] [address] [place] Flooring Sales Manager CARDIOVASCULAR DISEASE 12/03/18 documented as of this encounter
--- OUTSIDE RECORDS SUMMARY | 2024-11-11 10:56 | XMS_ITS | Patient Health Record ---
Author Organization [facility] Address [address] [facility] [address] [place], [place] [id number] Care Team Providers Care Supervisor Vat House Name Role Phone Nirmal Ann Unavailable Unavailable Reason For Referral No Information Plan Of Treatment No Information Insurance Providers Payer Name Payer Address Payer Phone Subscriber Number Group Number Insured Name Patient Relationship to Insured Coverage Start Date Coverage End Date [facility] [address] [address] [place] [id number] BERNARD HERNANDEZ Sponsored Dependent
--- OUTSIDE RECORDS SUMMARY | 2024-11-11 10:56 | XMS_ITS | Clinical Summary ---
Author Organization [facility] Address [address] [place] [address] Care Team Providers Care Postdoctoral Fellow Name Role Phone Gladys Stoner MD Unavailable [phone] Chun Orantes MD Unavailable [phone] Nirmal Hdz MD Primary Care Provider [phone] Allergies Active Allergy Reactions Criticality Noted Date [...] MD, 09/23/2013, 2:08 PM, Yellow Dye #6 ([place] Yellow) Unknown 07/20/2011 Medications aspirin 325 MG [...] 10/16/2018 Syringomyelia ([facility]/HCC [facility]) 06/12/2018 Carotid stenosis, asymptomatic, bilateral [...] drink = 0.6 oz pur e alcohol) [facility] Utilities Answer Date Recorded In the past 12 months has e [employer], oil, or water [employer] threatened to shut off services in your [...] place to sleep or slept in a fpc (including now)? 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 Not on file Not on fi le Last Filed Vital Signs Vital Sign Reading Time Taken Comments Blood Pressure 139/45 01/29/2023 1:48 PM CHURCH OFFICIAL Pulse 73 01/29/2023 1:48 PM CHURCH OFFICIAL Temperature 36.1 C (97 F) 01/29/2023 1:48 PM CHURCH OFFICIAL Respiratory Rate 18 01/29/2023 1:48 PM CHURCH OFFICIAL Oxygen Saturation 97% 01/29/2023 1:48 PM CHURCH OFFICIAL Inhaled Oxygen Concentration - - Weight 52.2 kg (115 lb) 01/27/2023 2:35 PM CHURCH OFFICIAL Height 157.5 cm (5' 2) 01/27/2023 2:35 PM CHURCH OFFICIAL Body Mass Index 21.03 01/27/2023 2:35 PM CHURCH OFFICIAL Plan of Treatment Health Maintenance Due Date Last Done Comments DTaP, Tdap and Td Vaccines ( 1 - Tdap) 1959 Annual Medicare Wellness Visit 08/19/2007 Pneumococcal Vaccine: 50+ Years (2 of 2 - PPSV23) 05/21/2012 03/26/2012 RSV Immunization or 60+ Years (1 - 1-dose 75+ series) 2017 COVID-19 Vaccine ( - 2023-2 5 season) 2024 Zoster Vaccines Completed 11/02/2018, 08/17/2018 Dexa Scan [...] Documents on File Type Date Recorded Patient Corporate Associate Expl anation Advance Directives and Livin g Will 01/30/2023 8:03 AM * Full Code (Latest Code Status on File) Date Activated Date Inactivated Comments 01/27/2023 2:42 PM 01/29/2023 5:38 PM Care Teams Postdoctoral Fellow Relationship Specialty Start Date End Date Nirmal Hdz MD [address] [place] [phone] PCP - General FAMILY PRACTICE 07/19/20 Gladys Stoner MD [place] Technical Marketing Consultant CARDIOVASCULAR DISEASE 06/24/18 Chun Orantes MD [address] [place] [address] [place] Technical Marketing Consultant CARDIOVASCULAR DISEASE 12/03/18
--- OUTSIDE RECORDS SUMMARY | 2024-11-11 10:56 | XMS_ITS | Clinical Summary ---
Author Organization [facility] Address [address] [place] [phone] Care Team Providers Care Director Of Marketing Google Performance Ads Name Role Phone Izabella Magallanes MD Primary Care Provider [phone] Allergies Active Allergy Reactions Criticality Noted Date Comments Erythromycin Iodine Penicillins Shellfish Containing Products Omvyhvq-Fcg-Awz Reductase Inhibitors Sulfa (Sulfonamide Antibiotics) Medications albuterol HFA (PROVENTIL HFA,VENTOLIN HFA,PROAIR HFA) 90 mcg/actuation inhaler ProAir HFA (albuterol sulfate) HFA aerosol inhaler 90 mcg/actuation; take 2 puff by mouth as directed; 0; -Aug-2014; Active 5 Active aspirin 325 mg tablet Take 1 tablet by mouth daily 5 Active C,E,zinc,copper 80-svujl8m-ffw 250-5-1 mg capsule Active carboxymethylcel lulose (REFRESH [...] 01/03/2022 Assessment & Plan (01/03/2022 12:54 PM BREAD DOUGH MIXER): I talked with her son about this. 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 I think she needs to see an cat skinner for further management of this. 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 She should continue with her current hearing aids. Benign paroxysmal positional vertigo 10/05/2016 Excessive cerumen in ear canal 10/05/2016 Surgical History Surgery Date Site/Laterality Comments [place] APPENDECTOMY Appendectomy - (Added by TW Conv) [place] BIOPSY BREAST OPEN INCISIONAL Biopsy Breast Open - (Added by TW Conv) [place] LIG/TRNSXJ FLP TUBE ABDL/ VAG APPR UNI/BI Tubal Ligation - (Added by TW Conv) [place] COLONOSCOPY FLX DX W/TOYA J SPEC WHEN PFRMD Colonoscopy (Fiberoptic) - (Added by TW Conv) [place] EXC CYST/ABERRANT BREAST TISSUE OPEN 1/> LESION Breast Surgery Lumpectomy - (Added by TW Conv) [place] TRABECULOPLASTY BY LASER SURGERY Anterior Chamber Laser [...] history of migraine headaches - (Added by Conv) Relation Name Status Comments Other Social [...] CDT Gender Identity Female 01/14/2022 6:11 AM BREAD DOUGH MIXER Sexual Orientation Straight 01/14/2022 6: 11 AM BREAD DOUGH MIXER Obstetrics History Last Filed Vital Signs Vital Sign Reading Time Taken Comments Blood Pressure 149/81 10/05/2016 11:00 AM CDT Pulse 79 10/05/2016 11:00 AM CDT Temperature - - Respiratory Rate 18 01/02/2022 10:45 AM BREAD DOUGH MIXER Oxygen Saturation - - Inhaled Oxygen Concentration - - Weight 63.5 kg (140 lb) 01/02/2022 10:45 AM BREAD DOUGH MIXER Height 160 cm (5' 3) 01/02/2022 10:45 AM BREAD DOUGH MIXER Body Mass Index 24.8 01/02/2022 10:45 AM BREAD DOUGH MIXER Plan of Treatment Health Maintenance Due Date Last Done Comments Depression Screening 1942 Fall Risk Assessment 1942 Osteoporosis Screening-Bone Density Scan 1942 DTaP/Tdap/Td Vaccine (1 - Tdap) 1953 Hepatitis B Screening 1960 Well Visit 65+ 08/19/2007 Influenza Vaccine (#1) 2024 , 11/17/2019, 11/27/2018, Additional history exists Pneumococcal vaccine 65+ Completed 08/19/2013, 02/27 Zoster Vaccine Completed 11/02/2018, 08/17/2018 Insurance [facility] Member Subscriber Plan / Payer (Ef fective 2024-) Name:Carolina Galdamez Relation to Subscriber:Self Name:Carolina Galdamez Payer ID:[id number] (NAIC) Group ID:Not on file Type:MEDICAID RISK OTHER Address: [address] [place] [facility] [place] Care Teams Director Of Marketing Google Performance Ads Relationship Specialty Start Date End Date Izabella Magallanes MD [address] [facility] [place] [address] PCP - General Internal Medicine 10/15/24
--- OUTSIDE RECORDS SUMMARY | 2024-11-11 10:56 | XMS_ITS | Clinical Summary ---
Author Organization [facility] Address [address] [place] [address] Care Team Providers Care Merchant Banker Name Role Phone Inder Redman MD Primary Care Provider [phone] [facility],non-owned Affiliates and Associated Physician Practices is amultiple site organization consisting of ambulatory clinics and hospital sitesin [place], [place] and [place]. This disclosure is being madepursuant to the Care Everywhere program and may not contain all information available regarding this patient. Last updated 17.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 Gender Identity Not on file Sexual Orientation [...] 11:58 AM CDT Height 157.5 cm (5' 2) 06/20/2015 11:58 AM CDT Body Mass Index 30.91 06/20/2015 11:58 AM CDT Plan of Treatment Health Maintenance Due Date Last Done Comments BONE DENSITY TESTING 1942 DTAP/TDAP/TD VACCINES (1 - Tdap) 1961 PNEUMOCOCCAL VACCINE 50+ (1 of 1 - PCV) 1992 ZOSTER VACCINE (1 of 2) 1992 Respiratory Syncytial Virus (RSV) Vaccine Pt: or over 60 yrs (1 - 1-dose 75+ series) 2017 DEPRESSION SCREENING 02/26/2024 COVID-19 VACCINE (2023-2 5 season) 2024 INFLUENZA VACCINE (#1) 2024 HEPATITIS B VACCINE Aged Out No [...] age to complete this topic Care Teams Merchant Banker Relationship Specialty Start Date End Date Inder Redman MD [address] [place] [phone] PCP - General 12/05/07
--- OUTSIDE RECORDS SUMMARY | 2024-11-11 10:56 | XMS_ITS | Encounter Summary ---
Author Organization [facility] Address [address] [place] [address] Care Team Providers Care Hotel Operations Manager Name Role Phone Inder Redman MD Primary Care Provider [phone] Angelo Willson MD Unavailable Unavailab Gladys Harding MD Unavailable [phone] Chun Orantes MD Unavailable [phone] Nirmal Ann MD Primary Care Provider [phone] Encounter Details Date Type Department Care Team (Late st Contact Info) Description 01/30/2016 Abstract [facility] [address] [place] [address] Angelo Willson MD Social History Tobacco Use [...] on filedocumented in this encounter Care Teams Hotel Operations Manager Relationship Specialty Start Date End Date Inder Redman MD [address] [place] [phone] PCP - General FAMILY PRACTICE 01/30/16 07/18/20 Nirmal Ann MD [address] [place], [place] [phone] PCP - General FAMILY PRACTICE 07/19/20 Angelo Willson MD [address] [place] [phone] CARDIOVASCULAR DISEASE 01/30/16 06/23/18 Gladys Stoner MD [address] [place], [place] [phone] [place] Veneer Sorter CARDIOVASCULAR DISEASE 06/24/18 Chun Orantes MD [address] [place] [address] [place] Veneer Sorter CARDIOVASCULAR DISEASE 12/03/18 documented as of this encounter
== END 2024-11-11 09:54 | disposition home or self-care (01) ==
LOC: CHSLAB 09:54
PROVIDERS: Visit Provider Internal Medicine
DX: E55.9 Vitamin D deficiency, unspecified (principal)
CPT/HCPCS: 36415; 82306

== ENCOUNTER 2024-12-14 13:54 | Outpatient (CLI) | payer OTHER, SELFPAY ==
--- OUTSIDE RECORDS SUMMARY | 2024-12-14 16:05 | XMS_ITS | Patient Health Record ---
Author Organization [facility] Address [address] [facility] [address] [place], [place] [phone] Care Team Providers Care Cutlet Maker Pork Name Role Phone Nirmal Ann Unavailable Unavailable Reason For Referral No Information Plan Of Treatment No Information Insurance Providers Payer Name Payer Address Payer Phone Subscriber Number Group Number Insured Name Patient Relationship to Insured Coverage Start Date Coverage End Date [facility] [address] [address] [place] [id number] BERNARD HERNANDEZ Sponsored Dependent
--- OUTSIDE RECORDS SUMMARY | 2024-12-14 16:05 | XMS_ITS | Clinical Summary ---
Author Organization [facility] Address [address] [place] [phone] Care Team Providers Care Employment Security Officer Name Role Phone Izabella Magallanes MD Primary Care Provider Allergies Active Allergy Reactions Criticality Noted Date Comments Erythromycin Iodine Penicillins Shellfish Containing Products Oglnuin-Wsu-Flj Reductase Inhibitors Sulfa (Sulfonamide Antibiotics) Medications albuterol HFA (PROVENTIL HFA,VENTOLIN HFA,PROAIR HFA) 90 mcg/actuation inhaler ProAir HFA (albuterol sulfate) HFA aerosol inhaler 90 mcg/actuation; take 2 puff by mouth as directed; 0; -Aug-2014; Active 5 Active aspirin 325 mg tablet Take 1 tablet by mouth daily 5 Active C,E,zinc,copper 15-zvdzb4w-yor 250-5-1 mg capsule Active carboxymethylcel lulose (REFRESH [...] 01/03/2022 Assessment & Plan (01/03/2022 12:54 PM COAT EXAMINER): I talked with her son about this. 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 I think she needs to see an attendant sales for further management of this. It is [...] 01/03/2022 Assessment & Plan (01/03/2022 12:55 PM COAT EXAMINER): Her hearing loss is relatively mild and mostly sensorineural. She should continue with her current hearing aids. Benign paroxysmal positional vertigo 10/05/2016 Excessive cerumen in ear canal 10/05/2016 Surgical History Surgery Date Site/Laterality Comments [place] APPENDECTOMY Appendectomy - (Added by TW Conv) [place] BIOPSY BREAST OPEN INCISIONAL Biopsy Breast Open - (Added by TW Conv) [place] LIG/TRNSXJ FLP TUBE ABDL/ VAG APPR UNI/BI Tubal Ligation - (Added by TW Conv) [place] COLONOSCOPY FLX DX W/TOYA J SPEC WHEN PFRMD Colonoscopy (Fiberoptic) - (Added by TW Conv) [place] EXC CYST/ABERRANT BREAST TISSUE OPEN 1/> LESION Breast Surgery Lumpectomy - (Added by TW Conv) [place] TRABECULOPLASTY BY LASER SURGERY Anterior Chamber Laser [...] CDT Gender Identity Female 01/14/2022 6:11 AM COAT EXAMINER Sexual Orientation Straight 01/14/2022 6: 11 AM COAT EXAMINER Obstetrics History Last Filed Vital Signs Vital Sign Reading Time Taken Comments Blood Pressure 149/81 10/05/2016 11:00 AM CDT Pulse 79 10/05/2016 11:00 AM CDT Temperature - - Respiratory Rate 18 01/02/2022 10:45 AM COAT EXAMINER Oxygen Saturation - - Inhaled Oxygen Concentration - - Weight 63.5 kg (140 lb) 01/02/2022 10:45 AM COAT EXAMINER Height 160 cm (5' 3) 01/02/2022 10:45 AM COAT EXAMINER Body Mass Index 24.8 01/02/2022 10:45 AM COAT EXAMINER Plan of Treatment Health Maintenance Due Date Last Done Comments Depression Screening 1942 Fall Risk Assessment 1942 Osteoporosis Screening-Bone Density Scan 1942 DTaP/Tdap/Td Vaccine (1 - Tdap) 1953 Hepatitis B Screening 1960 Well Visit 65+ 08/19/2007 Influenza Vaccine (#1) 2024 , 11/17/2019, 11/27/2018, Additional history exists Pneumococcal vaccine 65+ Completed 08/19/2013, 02/27 Zoster Vaccine Completed 11/02/2018, 08/17/2018 Insurance [facility] Member Subscriber Plan / Payer (Ef fective 2024-) Name:Carolina Galdamez Relation to Subscriber:Self Name:Carolina Galdamez Payer ID:[id number] (NAIC) Group ID:Not on file Type:MEDICAID RISK OTHER Address: [address] [place] [facility] [place] Care Teams Employment Security Officer Relationship Specialty Start Date End Date Izabella Magallanes MD [address] [facility] [place] [address] PCP - General Internal Medicine 10/15/24
--- OUTSIDE RECORDS SUMMARY | 2024-12-14 16:05 | XMS_ITS | Clinical Summary ---
Author Organization [facility] Address [address] [place] [address] Care Team Providers Care Movie Editor Name Role Phone Inder Redman MD Primary Care Provider [phone] Source Comments [facility],non-owned Affiliates and Associated Physician Practices is amultiple site organization consisting of ambulatory clinics and hospital sitesin [place], [place], [place] and [place]. This disclosure is being madepursuant to the Care Everywhere program and may not contain all information available regarding this patient. 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
== END 2024-12-14 13:55 | disposition home or self-care (01) ==
PROVIDERS: PCP Internal Medicine; Visit Provider Otolaryngology
DX: H90.3 Sensorineural hearing loss, bilateral (principal); H93.19 Tinnitus, unspecified ear
CPT/HCPCS: 92557; 92567